=== PATIENT | male | born 1940 | race Caucasian/White ===

== ENCOUNTER → 2017-05-08 | Outpatient (CLI) | payer MEDICARE, OTHER ==
[~2017-05-08] MED LIST: ASPI81EC; ATOR10; CLOBETTC TP; DESL5; DOCU100 PO; FERR325 PO; FISH1000 PO; HYDACE10B PO; LOSHYD; MULTI VITAMIN1 EACH PO; PRED10 PO; PROSTATE HEALT1 EACH PO; ROFE12.5; TAMS.4ER; UBID10; WARF4 PO; XYZAL5 MG PO; [UNRECOGNIZED DRUG - CODE]
[2017-05-08 09:34] LABS: EOSINOPHILS ABSOLUTE AUTO 0.22 K/mm3 (0.00-0.68); EOSINOPHILS PERCENT AUTO 0 % (0-6); Hematocrit 38.9 % (37.0-53.0); Hemoglobin 12.2 g/dL (13.5-17.5); Mean Corpuscular HGB 29.5 pg (26.0-34.0); Mean Corpuscular HGB Conc 31.4 g/dL (31.5-36.5); Mean Corpuscular Volume 94 fL (80-100); Mean Platelet Volume 9.3 fL (9.1-12.4); Platelet Count 147 K/mm3 (150-400); RDW Coefficient Variation 15.4 % (11.7-14.2); RDW Standard Deviation 53.1 fL (35.1-46.3); Red Blood Cell Count 4.13 M/mm3 (4.30-5.90)
[2017-05-08 09:44] LABS: Albumin, Blood 4.3 g/dL (3.4-5.0); Albumin/Globulin Ratio 1.3 (0.8-1.8); Bilirubin, Total 0.6 mg/dL (0.1-1.0); Calcium, Blood 9.2 mg/dL (8.5-10.1); Creatinine, Blood 1.5 mg/dL (0.60-1.20); Globulin, Blood 3.3 g/dL (2.2-4.0); Total Protein, Blood 7.6 g/dL (6.4-8.2)
[2017-05-08 10:12] LABS: BASOPHILS ABSOLUTE AUTO 0.06 K/mm3 (0.00-0.23); BASOPHILS PERCENT AUTO 0 % (0-2); IMMATURE GRAN ABSOLUTE AUTO 0.16 K/mm3 (0.00-0.10); IMMATURE GRAN PERCENT AUTO 0 % (0-1); LYMPHOCYTES ABSOLUTE AUTO 80.91 K/mm3 (0.84-5.20); LYMPHOCYTES PERCENT AUTO 88 % (21-46); MONOCYTES ABSOLUTE AUTO 5.87 K/mm3 (0.16-1.47); MONOCYTES PERCENT AUTO 6 % (4-13); NEUTROPHILS ABSOLUTE AUTO 4.29 K/mm3 (1.96-9.15); NEUTROPHILS PERCENT AUTO 5 % (41-73); White Blood Cell Count 91.51 K/mm3 (4.00-11.30)
== END ==
LOC: LAB SHORT 09:28 → LAB EV 09:28
PROVIDERS: General Practice
DX: C91.90 Lymphoid leukemia, unspecified not having achieved remission (principal); R05 Cough
CPT/HCPCS: 80053; 85025; 87070

== ENCOUNTER → 2017-05-14 | Outpatient (CLI) | payer MEDICARE, OTHER ==
[2017-05-14 09:13] LABS: EOSINOPHILS ABSOLUTE AUTO 0.24 K/mm3 (0.00-0.68); EOSINOPHILS PERCENT AUTO 0 % (0-6); Hematocrit 37.3 % (37.0-53.0); IMMATURE GRAN ABSOLUTE AUTO 0.15 K/mm3 (0.00-0.10); IMMATURE GRAN PERCENT AUTO 0 % (0-1); Mean Corpuscular HGB 30.2 pg (26.0-34.0); Mean Corpuscular HGB Conc 32.2 g/dL (31.5-36.5); Mean Corpuscular Volume 94 fL (80-100); Mean Platelet Volume 9.4 fL (9.1-12.4); NEUTROPHILS ABSOLUTE AUTO 3.98 K/mm3 (1.96-9.15); NEUTROPHILS PERCENT AUTO 5 % (41-73); Platelet Count 151 K/mm3 (150-400); RDW Coefficient Variation 15.2 % (11.7-14.2); RDW Standard Deviation 52.3 fL (35.1-46.3); Red Blood Cell Count 3.98 M/mm3 (4.30-5.90)
[2017-05-14 09:23] LABS: Albumin, Blood 4.1 g/dL (3.4-5.0); Albumin/Globulin Ratio 1.2 (0.8-1.8); Bilirubin, Total 0.6 mg/dL (0.1-1.0); Bun/Creatinine Ratio 19.2 (12.0-20.0); Creatinine, Blood 1.2 mg/dL (0.60-1.20); Globulin, Blood 3.3 g/dL (2.2-4.0); Total Protein, Blood 7.4 g/dL (6.4-8.2)
[2017-05-14 10:04] LABS: BASOPHILS PERCENT AUTO 0 % (0-2); LYMPHOCYTES ABSOLUTE AUTO 77.59 K/mm3 (0.84-5.20); LYMPHOCYTES PERCENT AUTO 89 % (21-46); MONOCYTES ABSOLUTE AUTO 5.07 K/mm3 (0.16-1.47); MONOCYTES PERCENT AUTO 6 % (4-13)
[2017-05-14 10:05] LABS: White Blood Cell Count 87.23 K/mm3 (4.00-11.30)
== END | disposition home or self-care (01) ==
LOC: LAB EV 09:07 → LAB SHORT 09:07
PROVIDERS: General Practice
DX: C91.90 Lymphoid leukemia, unspecified not having achieved remission (principal)
CPT/HCPCS: 80053; 85025

== ENCOUNTER → 2017-05-20 | Outpatient (CLI) | payer MEDICARE, OTHER ==
[~2017-05-20] MED LIST changes: +ASPI81CH PO; +ATOR20 PO; +CHOL10002 PO; +COQ1050 MG PO; +FISH OIL 1,0001 EAC1 PO; +KETO15TC TOP; +LOSARTAN-HCTZ1 EAC1 PO; +TAMS.4ER PO; +TURMERIC500 M2 PO; +[UNRECOGNIZED DRUG - OTHER] PO
== END | disposition home or self-care (01) ==
LOC: PLD 11:47 → LAB SHORT 11:47
DX: D48.5 Neoplasm of uncertain behavior of skin (principal)
CPT/HCPCS: 88305

== ENCOUNTER 2017-08-31 08:57 | Day surgery (SDC) | payer MEDICARE, OTHER ==
[~2017-08-31] VITALS: Ht 188 cm; Wt 116.6 kg
== END 2017-08-31 23:15 | disposition home or self-care (01) ==
LOC: ORSCMMR 08:57 → ORD 10:30 → ORSCMMR 23:15
DX: C91.10 Chronic lymphocytic leukemia of B-cell type not having achieved remission (principal); I10 Essential (primary) hypertension; G47.33 Obstructive sleep apnea (adult) (pediatric); Z79.899 Other long term (current) drug therapy; Z79.82 Long term (current) use of aspirin
CPT/HCPCS: 77001; C1788; J0690; J1100; J1642; J2250; J2405; J3010; J7120

== ENCOUNTER → 2017-09-01 | Outpatient (CLI) | payer MEDICARE, OTHER ==
[2017-09-01 11:56] LABS: EOSINOPHILS ABSOLUTE AUTO 0.09 K/mm3 (0.00-0.68); EOSINOPHILS PERCENT AUTO 0 % (0-6); Hematocrit 35.9 % (37.0-53.0); Hemoglobin 10.8 g/dL (13.5-17.5); Mean Corpuscular HGB 29.3 pg (26.0-34.0); Mean Corpuscular HGB Conc 30.1 g/dL (31.5-36.5); Mean Corpuscular Volume 97 fL (80-100); Mean Platelet Volume 9.9 fL (9.1-12.4); Platelet Count 143 K/mm3 (150-400); RDW Coefficient Variation 15.8 % (11.7-14.2); Red Blood Cell Count 3.69 M/mm3 (4.30-5.90)
[2017-09-01 11:58] LABS: BASOPHILS ABSOLUTE AUTO 0.08 K/mm3 (0.00-0.23); BASOPHILS PERCENT AUTO 0 % (0-2); IMMATURE GRAN ABSOLUTE AUTO 0.22 K/mm3 (0.00-0.10); IMMATURE GRAN PERCENT AUTO 0 % (0-1); LYMPHOCYTES ABSOLUTE AUTO 96.77 K/mm3 (0.84-5.20); LYMPHOCYTES PERCENT AUTO 86 % (21-46); MONOCYTES ABSOLUTE AUTO 10.44 K/mm3 (0.16-1.47); MONOCYTES PERCENT AUTO 9 % (4-13); NEUTROPHILS ABSOLUTE AUTO 4.92 K/mm3 (1.96-9.15); NEUTROPHILS PERCENT AUTO 4 % (41-73)
[2017-09-01 12:01] LABS: White Blood Cell Count 112.52 K/mm3 (4.00-11.30)
[2017-09-01 13:29] LABS: BASOPHILS PERCENT MAN 0 % (0-2); EOSINOPHILS ABSOLUTE MAN 1.12 K/mm3 (0.00-0.68); EOSINOPHILS PERCENT MAN 1 % (0-6); LYMPHOCYTES ABSOLUTE MAN 104.64 K/mm3 (0.84-5.20); LYMPHOCYTES PERCENT MAN 93 % (21-46); MONOCYTES ABSOLUTE MAN 1.12 K/mm3 (0.16-1.47); MONOCYTES PERCENT MAN 1 % (4-13); NEUTROPHILS ABSOLUTE MAN 5.62 K/mm3 (1.96-9.15); SEG NEUTROPHILS PERCENT MAN 5 % (41-73); TOTAL CELLS COUNTED 100
== END | disposition home or self-care (01) ==
LOC: LAB 11:32 → LAB SHORT 11:32
PROVIDERS: Internal Medicine Hematology & Oncology
DX: C91.10 Chronic lymphocytic leukemia of B-cell type not having achieved remission (principal)
CPT/HCPCS: 85025

== ENCOUNTER → 2017-09-02 | Outpatient (CLI) | payer MEDICARE, OTHER ==
[2017-09-03 10:11] LABS: Albumin, Blood 3.2 g/dL (3.4-5.0); Albumin/Globulin Ratio 1.2 (0.8-1.8); Bilirubin, Total 0.3 mg/dL (0.1-1.0); Bun/Creatinine Ratio 33.1 (12.0-20.0); Creatinine, Blood 1.33 mg/dL (0.60-1.20); Globulin, Blood 2.6 g/dL (2.2-4.0); Potassium, Blood 4.4 mmol/L (3.5-5.5); Total Protein, Blood 5.8 g/dL (6.4-8.2); Uric Acid, Blood 4.3 mg/dL (3.5-7.2)
[2017-09-03 11:00] LABS: BASOPHILS ABSOLUTE AUTO 0.03 K/mm3 (0.00-0.23); BASOPHILS PERCENT AUTO 0 % (0-2); EOSINOPHILS PERCENT AUTO 0 % (0-6); Hematocrit 30.8 % (37.0-53.0); Mean Corpuscular HGB 30.6 pg (26.0-34.0); Mean Corpuscular HGB Conc 32.5 g/dL (31.5-36.5); NRBC ABSOLUTE 0.06 K/mm3 (0.00-0.02); NRBC Auto 0.2 /100 WBC (0.0-0.2); RDW Coefficient Variation 15.7 % (11.7-14.2); RDW Standard Deviation 53.7 fL (35.1-46.3); Red Blood Cell Count 3.27 M/mm3 (4.30-5.90); White Blood Cell Count 27.23 K/mm3 (4.00-11.30)
[2017-09-03 11:02] LABS: IMMATURE GRAN ABSOLUTE AUTO 0.11 K/mm3 (0.00-0.10); IMMATURE GRAN PERCENT AUTO 0 % (0-1); LYMPHOCYTES ABSOLUTE AUTO 18.74 K/mm3 (0.84-5.20); LYMPHOCYTES PERCENT AUTO 69 % (21-46); MONOCYTES ABSOLUTE AUTO 2.77 K/mm3 (0.16-1.47); MONOCYTES PERCENT AUTO 10 % (4-13); Mean Corpuscular Volume 94 fL (80-100); Mean Platelet Volume 10.9 fL (9.1-12.4); NEUTROPHILS ABSOLUTE AUTO 5.58 K/mm3 (1.96-9.15); NEUTROPHILS PERCENT AUTO 21 % (41-73); Platelet Count 76 K/mm3 (150-400)
[2017-09-03 11:10] LABS: BAND PERCENT MAN 1 % (0-8); BASOPHILS PERCENT MAN 0 % (0-2); EOSINOPHILS PERCENT MAN 0 % (0-6); LYMPHOCYTES PERCENT MAN 83 % (21-46); METAMYELOCYTE ABSOLUTE MAN 0.27 K/mm3 (0.00-0.00); METAMYELOCYTE PERCENT MAN 1 % (0-0); MONOCYTES PERCENT MAN 0 % (4-13); NEUTROPHILS ABSOLUTE MAN 4.35 K/mm3 (1.96-9.15); SEG NEUTROPHILS PERCENT MAN 15 % (41-73); TOTAL CELLS COUNTED 100
== END ==
LOC: LAB SHORT 15:10
PROVIDERS: Internal Medicine Hematology & Oncology
DX: C91.10 Chronic lymphocytic leukemia of B-cell type not having achieved remission (principal)
CPT/HCPCS: 80053; 84550; 85025

== ENCOUNTER → 2017-09-04 | Outpatient (CLI) | payer MEDICARE, OTHER ==
[2017-09-04 14:17] LABS: Alanine Aminotransfer (ALT/SGP 27 U/L (12-78); Albumin, Blood 3.6 g/dL (3.4-5.0); Albumin/Globulin Ratio 1.4 (0.8-1.8); Alk Phos 87 U/L (50-136); Anion Gap 9 mmol/L (6-16); Aspartate Aminotrans (AST/SGOT 30 U/L (12-37); Bilirubin, Total 0.5 mg/dL (0.1-1.0); Blood Urea Nitrogen 35 mg/dL (8-24); Bun/Creatinine Ratio 28.9 (12.0-20.0); CO2, Blood 27 mmol/L (21-32); Calcium, Blood 8.3 mg/dL (8.5-10.1); Chloride, Blood 107 mmol/L (98-108); Creatinine, Blood 1.21 mg/dL (0.60-1.20); Globulin, Blood 2.6 g/dL (2.2-4.0); Glomerular Filtration Rate >60 (60-); Glucose, Blood 138 mg/dL (70-99); Potassium, Blood 4.1 mmol/L (3.5-5.5); Sodium, Blood 143 mmol/L (136-145); Total Protein, Blood 6.2 g/dL (6.4-8.2); Uric Acid, Blood 3.9 mg/dL (3.5-7.2)
== END ==
LOC: LAB SHORT 13:55 → LAB 13:55
PROVIDERS: Internal Medicine Hematology & Oncology
DX: C91.10 Chronic lymphocytic leukemia of B-cell type not having achieved remission (principal)
CPT/HCPCS: 80053; 84550

== ENCOUNTER → 2017-09-08 | Outpatient (CLI) | payer MEDICARE, OTHER ==
[2017-09-08 10:56] LABS: Alanine Aminotransfer (ALT/SGP 28 U/L (12-78); Albumin, Blood 3.6 g/dL (3.4-5.0); Albumin/Globulin Ratio 1.3 (0.8-1.8); Alk Phos 84 U/L (50-136); Anion Gap 8 mmol/L (6-16); Aspartate Aminotrans (AST/SGOT 32 U/L (12-37); Bilirubin, Total 0.8 mg/dL (0.1-1.0); Blood Urea Nitrogen 23 mg/dL (8-24); Bun/Creatinine Ratio 21.5 (12.0-20.0); CO2, Blood 30 mmol/L (21-32); Calcium, Blood 8.2 mg/dL (8.5-10.1); Chloride, Blood 101 mmol/L (98-108); Creatinine, Blood 1.07 mg/dL (0.60-1.20); Globulin, Blood 2.7 g/dL (2.2-4.0); Glomerular Filtration Rate >60 (60-); Glucose, Blood 110 mg/dL (70-99); Potassium, Blood 4.1 mmol/L (3.5-5.5); Sodium, Blood 139 mmol/L (136-145); Total Protein, Blood 6.3 g/dL (6.4-8.2)
== END | disposition home or self-care (01) ==
LOC: LAB 10:25 → LAB SHORT 10:25
PROVIDERS: Internal Medicine Hematology & Oncology
DX: C91.10 Chronic lymphocytic leukemia of B-cell type not having achieved remission (principal)
CPT/HCPCS: 80053

== ENCOUNTER → 2017-09-22 | Outpatient (CLI) | payer MEDICARE, OTHER ==
[2017-09-22 16:59] LABS: Albumin, Blood 4.1 g/dL (3.4-5.0); Albumin/Globulin Ratio 1.5 (0.8-1.8); Bilirubin, Total 1.1 mg/dL (0.1-1.0); Bun/Creatinine Ratio 20.8 (12.0-20.0); Calcium, Blood 8.7 mg/dL (8.5-10.1); Creatinine, Blood 1.3 mg/dL (0.60-1.20); Globulin, Blood 2.7 g/dL (2.2-4.0); Total Protein, Blood 6.8 g/dL (6.4-8.2)
== END ==
LOC: LAB SHORT 08:45 → LAB 08:45
PROVIDERS: Internal Medicine Hematology & Oncology
DX: C91.10 Chronic lymphocytic leukemia of B-cell type not having achieved remission (principal)
CPT/HCPCS: 80053

== ENCOUNTER → 2017-09-29 | Outpatient (CLI) | payer MEDICARE, OTHER ==
[2017-09-29 13:43] LABS: Alanine Aminotransfer (ALT/SGP 31 U/L (12-78); Albumin, Blood 3.9 g/dL (3.4-5.0); Albumin/Globulin Ratio 1.4 (0.8-1.8); Alk Phos 110 U/L (50-136); Anion Gap 8 mmol/L (6-16); Aspartate Aminotrans (AST/SGOT 39 U/L (12-37); Bilirubin, Total 0.4 mg/dL (0.1-1.0); Blood Urea Nitrogen 28 mg/dL (8-24); Bun/Creatinine Ratio 26.7 (12.0-20.0); CO2, Blood 27 mmol/L (21-32); Calcium, Blood 8.5 mg/dL (8.5-10.1); Chloride, Blood 103 mmol/L (98-108); Creatinine, Blood 1.05 mg/dL (0.60-1.20); Globulin, Blood 2.8 g/dL (2.2-4.0); Glomerular Filtration Rate >60 (60-); Glucose, Blood 142 mg/dL (70-99); Sodium, Blood 138 mmol/L (136-145); Total Protein, Blood 6.7 g/dL (6.4-8.2)
== END | disposition home or self-care (01) ==
LOC: LAB 12:25 → LAB SHORT 12:25
PROVIDERS: Internal Medicine Hematology & Oncology
DX: C91.10 Chronic lymphocytic leukemia of B-cell type not having achieved remission (principal)
CPT/HCPCS: 80053

== ENCOUNTER → 2017-10-20 | Outpatient (CLI) | payer MEDICARE, OTHER ==
[2017-10-20 10:48] LABS: Alanine Aminotransfer (ALT/SGP 31 U/L (12-78); Albumin/Globulin Ratio 1.4 (0.8-1.8); Alk Phos 105 U/L (50-136); Anion Gap 6 mmol/L (6-16); Aspartate Aminotrans (AST/SGOT 45 U/L (12-37); Bilirubin, Total 0.4 mg/dL (0.1-1.0); Blood Urea Nitrogen 23 mg/dL (8-24); Bun/Creatinine Ratio 22.5 (12.0-20.0); CO2, Blood 31 mmol/L (21-32); Calcium, Blood 8.5 mg/dL (8.5-10.1); Chloride, Blood 105 mmol/L (98-108); Creatinine, Blood 1.02 mg/dL (0.60-1.20); Globulin, Blood 2.9 g/dL (2.2-4.0); Glomerular Filtration Rate >60 (60-); Glucose, Blood 109 mg/dL (70-99); Sodium, Blood 142 mmol/L (136-145); Total Protein, Blood 6.9 g/dL (6.4-8.2)
== END ==
LOC: LAB SHORT 10:19 → LAB 10:19
PROVIDERS: Internal Medicine Hematology & Oncology
DX: C91.10 Chronic lymphocytic leukemia of B-cell type not having achieved remission (principal)
CPT/HCPCS: 80053

== ENCOUNTER → 2017-11-24 | Outpatient (CLI) | payer MEDICARE, OTHER ==
[2017-11-24 10:57] LABS: Alanine Aminotransfer (ALT/SGP 37 U/L (12-78); Albumin/Globulin Ratio 1.4 (0.8-1.8); Alk Phos 77 U/L (50-136); Anion Gap 7 mmol/L (6-16); Aspartate Aminotrans (AST/SGOT 54 U/L (12-37); Bilirubin, Total 0.6 mg/dL (0.1-1.0); Blood Urea Nitrogen 25 mg/dL (8-24); Bun/Creatinine Ratio 27.3 (12.0-20.0); CO2, Blood 30 mmol/L (21-32); Calcium, Blood 8.6 mg/dL (8.5-10.1); Chloride, Blood 106 mmol/L (98-108); Creatinine, Blood 0.92 mg/dL (0.60-1.20); Globulin, Blood 2.8 g/dL (2.2-4.0); Glomerular Filtration Rate >60 (60-); Glucose, Blood 96 mg/dL (70-99); Potassium, Blood 3.9 mmol/L (3.5-5.5); Sodium, Blood 143 mmol/L (136-145); Total Protein, Blood 6.8 g/dL (6.4-8.2)
== END ==
LOC: LAB SHORT 10:23 → LAB 10:23
PROVIDERS: Internal Medicine Hematology & Oncology
DX: C91.10 Chronic lymphocytic leukemia of B-cell type not having achieved remission (principal)
CPT/HCPCS: 80053

== ENCOUNTER → 2017-11-25 | Outpatient (CLI) | payer MEDICARE, OTHER | LOC: PLD 10:44 → LAB SHORT 10:44 | DX: D48.5 Neoplasm of uncertain behavior of skin (principal) | CPT/HCPCS: 88305 ==

== ENCOUNTER → 2017-12-02 | Outpatient (CLI) | payer MEDICARE, OTHER | END | disposition home or self-care (01) | LOC: LAB 08:00 → LAB SHORT 08:00 | DX: L08.0 Pyoderma (principal) | CPT/HCPCS: 87070; 87077; 87147; 87186; 87205 ==

== ENCOUNTER → 2017-12-15 | Outpatient (CLI) | payer MEDICARE, OTHER | END | disposition home or self-care (01) | LOC: LAB SHORT 14:47 → PLD 14:47 | DX: C44.310 Basal cell carcinoma of skin of unspecified parts of face (principal) | CPT/HCPCS: 88305 ==

== ENCOUNTER → 2018-01-11 | Outpatient (CLI) | payer MEDICARE, OTHER | END | disposition home or self-care (01) | LOC: PLD 07:51 → LAB SHORT 07:51 | DX: C44.319 Basal cell carcinoma of skin of other parts of face (principal) | CPT/HCPCS: 88305 ==

== ENCOUNTER → 2018-03-04 | Outpatient (CLI) | payer MEDICARE, OTHER | END | disposition home or self-care (01) | LOC: PLD 14:13 → LAB SHORT 14:13 | DX: L57.0 Actinic keratosis (principal) | CPT/HCPCS: 88305 ==

== ENCOUNTER → 2018-03-18 | Outpatient (CLI) | payer MEDICARE, OTHER | END | disposition home or self-care (01) | LOC: PLD 11:22 → LAB SHORT 11:22 | DX: C44.319 Basal cell carcinoma of skin of other parts of face (principal); C44.212 Basal cell carcinoma of skin of right ear and external auricular canal | CPT/HCPCS: 88305 ==

== ENCOUNTER → 2018-05-06 | Outpatient (CLI) | payer MEDICARE, OTHER | END | disposition home or self-care (01) | LOC: LAB SHORT 13:51 → PLD 13:51 | DX: C44.219 Basal cell carcinoma of skin of left ear and external auricular canal (principal); L57.0 Actinic keratosis | CPT/HCPCS: 88305 ==

== ENCOUNTER → 2018-05-26 | Outpatient (CLI) | payer MEDICARE, OTHER | END | disposition home or self-care (01) | LOC: PLD 07:47 → LAB SHORT 07:47 | DX: C44.41 Basal cell carcinoma of skin of scalp and neck (principal) | CPT/HCPCS: 88305 ==

== ENCOUNTER → 2018-07-05 | Outpatient (CLI) | payer MEDICARE, OTHER | END | disposition home or self-care (01) | LOC: LAB SHORT 13:54 → PLD 13:54 | DX: C44.41 Basal cell carcinoma of skin of scalp and neck (principal) | CPT/HCPCS: 88305 ==

== ENCOUNTER → 2018-07-19 | Outpatient (CLI) | payer MEDICARE, OTHER ==
[2018-07-19 17:14] LABS: Alanine Aminotransfer (ALT/SGP 47 U/L (12-78); Albumin, Blood 4.4 g/dL (3.4-5.0); Albumin/Globulin Ratio 1.6 (0.8-1.8); Alk Phos 93 U/L (50-136); Anion Gap 8 mmol/L (6-16); Aspartate Aminotrans (AST/SGOT 64 U/L (12-37); Bilirubin, Total 0.6 mg/dL (0.1-1.0); Blood Urea Nitrogen 22 mg/dL (8-24); Bun/Creatinine Ratio 21.8 (12.0-20.0); CO2, Blood 30 mmol/L (21-32); Calcium, Blood 9.1 mg/dL (8.5-10.1); Chloride, Blood 102 mmol/L (98-108); Creatinine, Blood 1.01 mg/dL (0.60-1.20); Globulin, Blood 2.7 g/dL (2.2-4.0); Glomerular Filtration Rate >60 (60-); Glucose, Blood 113 mg/dL (70-99); Potassium, Blood 3.9 mmol/L (3.5-5.5); Sodium, Blood 140 mmol/L (136-145); Total Protein, Blood 7.1 g/dL (6.4-8.2)
[2018-07-19 17:23] LABS: Lactate Dehydrogenase (Ld),Bld 200 U/L (100-240)
== END | disposition home or self-care (01) ==
LOC: LAB 16:39 → LAB SHORT 16:39
PROVIDERS: Internal Medicine Hematology & Oncology
DX: C91.10 Chronic lymphocytic leukemia of B-cell type not having achieved remission (principal)
CPT/HCPCS: 80053; 83615

== ENCOUNTER → 2018-12-29 | Outpatient (CLI) | payer MEDICARE, OTHER | END | disposition home or self-care (01) | LOC: PLD 12:11 → LAB SHORT 12:11 | DX: C44.219 Basal cell carcinoma of skin of left ear and external auricular canal (principal); C44.319 Basal cell carcinoma of skin of other parts of face; H60.92 Unspecified otitis externa, left ear | CPT/HCPCS: 88305 ==

== ENCOUNTER → 2019-01-31 | Outpatient (CLI) | payer MEDICARE, OTHER | LOC: LAB SHORT 07:56 → PLD 07:56 | DX: C44.310 Basal cell carcinoma of skin of unspecified parts of face (principal) | CPT/HCPCS: 88305 ==

== ENCOUNTER → 2019-04-06 | Outpatient (CLI) | payer MEDICARE, OTHER | END | disposition home or self-care (01) | LOC: PLD 13:23 → LAB SHORT 13:23 | DX: D48.5 Neoplasm of uncertain behavior of skin (principal) | CPT/HCPCS: 88305 ==

== ENCOUNTER → 2019-08-09 | Outpatient (CLI) | payer MEDICARE, OTHER | END | disposition home or self-care (01) | LOC: LAB SHORT 12:49 → PLD 12:49 | DX: C44.311 Basal cell carcinoma of skin of nose (principal) | CPT/HCPCS: 88305 ==

== ENCOUNTER → 2020-01-17 | Outpatient (CLI) | payer MEDICARE, OTHER ==
[~2020-01-17] MED LIST changes: +ACET325 PO; +ALBU90OI INH; +ALLO300 PO; +BENZ100A PO; +BISA10S PR; +DECADRON6 MG PO; +DEXA2 PO; +DOXY100 PO; -LOSARTAN-HCTZ1 EAC1 PO; +LOSARTAN-HCTZ1 EAC5 PO; +ONDA4ODT SL; +Q-Tussin100 MG/5 M PO; +VISBIOME PROBIOTIC PO
== END ==
LOC: PLD 15:25 → LAB SHORT 15:25
DX: C44.219 Basal cell carcinoma of skin of left ear and external auricular canal (principal); C44.41 Basal cell carcinoma of skin of scalp and neck; C44.319 Basal cell carcinoma of skin of other parts of face; C44.212 Basal cell carcinoma of skin of right ear and external auricular canal
CPT/HCPCS: 88305

== ENCOUNTER 2020-01-31 10:09 | Emergency (ER) | payer MEDICARE, OTHER ==
[~2020-01-31] VITALS: Ht 190.5 cm; Wt 117.9 kg
[~2020-01-31 10:09] MED LIST changes: -ACET325 PO; -ALBU90OI INH; -ALLO300 PO; -ATOR20 PO; -BENZ100A PO; -BISA10S PR; -DECADRON6 MG PO; -DOXY100 PO; -LOSARTAN-HCTZ1 EAC5 PO; -ONDA4ODT SL; -Q-Tussin100 MG/5 M PO; -TAMS.4ER PO; -VISBIOME PROBIOTIC PO
[2020-01-31 11:23] LABS: Hematocrit 40.8 % (37.0-53.0); Hemoglobin 13.2 g/dL (13.5-17.5); Mean Corpuscular HGB 29.7 pg (26.0-34.0); Mean Corpuscular HGB Conc 32.4 g/dL (31.5-36.5); Mean Corpuscular Volume 92 fL (80-100); Platelet Count 167 K/mm3 (150-400); Red Blood Cell Count 4.44 M/mm3 (4.30-5.90); White Blood Cell Count 12.08 K/mm3 (4.00-11.30)
[2020-01-31 11:42] LABS: Alanine Aminotransfer (ALT/SGP 29 U/L (12-78); Albumin, Blood 3.4 g/dL (3.4-5.0); Albumin/Globulin Ratio 1.2 (0.8-1.8); Alk Phos 60 U/L (50-136); Anion Gap 6 mmol/L (6-16); Aspartate Aminotrans (AST/SGOT 58 U/L (12-37); Bilirubin, Total 0.4 mg/dL (0.1-1.0); Blood Urea Nitrogen 38 mg/dL (8-24); Bun/Creatinine Ratio 25.9 (12.0-20.0); CO2, Blood 30 mmol/L (21-32); Calcium, Blood 8.3 mg/dL (8.5-10.1); Chloride, Blood 100 mmol/L (98-108); Creatinine, Blood 1.47 mg/dL (0.60-1.20); Globulin, Blood 2.8 g/dL (2.2-4.0); Glomerular Filtration Rate 49 (60-); Glucose, Blood 115 mg/dL (70-99); Potassium, Blood 3.6 mmol/L (3.5-5.5); Sodium, Blood 136 mmol/L (136-145); Total Protein, Blood 6.2 g/dL (6.4-8.2); Troponin I <0.015 ng/mL (0.000-0.040)
[2020-01-31 11:51] LABS: BASOPHILS PERCENT MAN 0 % (0-2); EOSINOPHILS PERCENT MAN 0 % (0-6); LYMPHOCYTES % ATYPICAL MANUAL 9 % (0-0); LYMPHOCYTES ABSOLUTE MAN 5.07 K/mm3 (0.84-5.20); LYMPHOCYTES PERCENT MAN 33 % (21-46); MONOCYTES ABSOLUTE MAN 0.48 K/mm3 (0.16-1.47); MONOCYTES PERCENT MAN 4 % (4-13); NEUTROPHILS ABSOLUTE MAN 6.52 K/mm3 (1.96-9.15); SEG NEUTROPHILS PERCENT MAN 54 % (41-73); TOTAL CELLS COUNTED 100
[2020-01-31] MEDS ORDERED: DECADRON6 MG PO (12:14)
== END 2020-01-31 14:03 | disposition home or self-care (01) ==
LOC: ER 10:09
PROVIDERS: Emergency Medicine
DX: U07.1 COVID-19 (principal); R11.2 Nausea with vomiting, unspecified; R09.02 Hypoxemia; Z79.899 Other long term (current) drug therapy; Z79.82 Long term (current) use of aspirin
CPT/HCPCS: 36415; 80053; 83880; 84484; 85025; 93005; 93010; 96360; 99285-25; J7030

== ENCOUNTER 2020-02-02 06:04 | Inpatient (IN) | payer MEDICARE, OTHER ==
[~2020-02-02] VITALS: Ht 190.5 cm; Wt 120.2 kg
[~2020-02-02 06:04] MED LIST changes: +DECADRON6 MG PO
[2020-02-02 06:40] LABS: Hematocrit 41.5 % (37.0-53.0); Hemoglobin 13.3 g/dL (13.5-17.5); Mean Corpuscular HGB 29.7 pg (26.0-34.0); Mean Corpuscular Volume 93 fL (80-100); Platelet Count 145 K/mm3 (150-400); RDW Coefficient Variation 13.2 % (11.7-14.2); RDW Standard Deviation 45.6 fL (35.1-46.3); Red Blood Cell Count 4.48 M/mm3 (4.30-5.90); White Blood Cell Count 10.28 K/mm3 (4.00-11.30)
[2020-02-02 06:54] LABS: Albumin/Globulin Ratio 1.1 (0.8-1.8); Bilirubin, Total 0.6 mg/dL (0.1-1.0); Bun/Creatinine Ratio 22.1 (12.0-20.0); Calcium, Blood 7.8 mg/dL (8.5-10.1); Creatinine, Blood 1.4 mg/dL (0.60-1.20); Globulin, Blood 2.7 g/dL (2.2-4.0); Potassium, Blood 3.6 mmol/L (3.5-5.5); Total Protein, Blood 5.7 g/dL (6.4-8.2)
[2020-02-02 07:06] LABS: BASOPHILS PERCENT MAN 0 % (0-2); EOSINOPHILS PERCENT MAN 0 % (0-6); LYMPHOCYTES % ATYPICAL MANUAL 9 % (0-0); LYMPHOCYTES ABSOLUTE MAN 4.31 K/mm3 (0.84-5.20); LYMPHOCYTES PERCENT MAN 33 % (21-46); MONOCYTES ABSOLUTE MAN 0.82 K/mm3 (0.16-1.47); MONOCYTES PERCENT MAN 8 % (4-13); NEUTROPHILS ABSOLUTE MAN 5.14 K/mm3 (1.96-9.15); SEG NEUTROPHILS PERCENT MAN 50 % (41-73); TOTAL CELLS COUNTED 100
--- NOTE | 2020-02-02 13:00 | NUR ---
PT ARRIVED TO TO ROOM 307-01 VIA BED FROM THE ER. HE WAS ABLE TO STAND AND TRANSFER TO BED WITH ASSISTANCE, SOMEWHAT WEAK GAIT R/T CURRENT ILLNESS. DENIES PAIN AND N/V AT THIS TIME. ORIENTED TO ROOM, CALL MACHADO IN REACH AND BED IN LOWEST POSITION. WILL CONTINUE TO MONITOR
[2020-02-02] MEDS ORDERED: ONDA4ODT SL (15:37)
[2020-02-02] MEDS ORDERED: ATOR20 PO (15:38)
[2020-02-02] MEDS ORDERED: TAMS.4ER PO (15:39)
[2020-02-02] MEDS ORDERED: ALLO300 PO (15:40)
[2020-02-02] MEDS ORDERED: LOSARTAN-HCTZ1 EAC5 PO (15:41)
--- NOTE | 2020-02-02 18:00 | NUR ---
PHONE NOT WORKING, MOVED PT FROM 307 BED 1 TO 307 BED 2. PT THEN ABLE MAKE AN OUTSIDE CALL TO HIS SPOUSE. CALL SYSTEM NOT CALLING RN/AS400 ANALYST VOCABRAN, DOES CALL CHARGE VOCERA AND DESK. BALES LIGHT COMES ON. WILL CONTINUE TO MONTR
--- NOTE | 2020-02-02 18:55 | NUR ---
NO ACUTE CHANGES NOTED SINCE ARRIVAL TO ROOM. WILL CONTINUE TO MONITOR AND REPORT TO ONCOMING RN
--- NOTE | 2020-02-03 05:28 | NUR ---
LEAD INSPECTOR SUMMARY ALERT AND ORIENTED. APPEARED TO SLEEP T/O NIGHT. DENIES PAIN, N/V AT THIS TIME. CURRENTLY ON 2L O2 VIA NC, CONT. BIOX IN PLACE WITH SATS GREATER THAN 93. NO ACUTE CHANGES NOTED. BED IN LOWEST POSITION WITH CALL LIGHT IN REACH. WILL CONTINUE TO MONITOR AND REPORT TO ONCOMING RN.
[2020-02-03 05:36] LABS: Hemoglobin 14.2 g/dL (13.5-17.5); Mean Corpuscular HGB 30.2 pg (26.0-34.0); Mean Corpuscular Volume 92 fL (80-100); Mean Platelet Volume 9.9 fL (9.1-12.4); Platelet Count 153 K/mm3 (150-400); RDW Coefficient Variation 13.3 % (11.7-14.2); RDW Standard Deviation 45.1 fL (35.1-46.3); White Blood Cell Count 12.13 K/mm3 (4.00-11.30)
[2020-02-03 06:06] LABS: Alanine Aminotransfer (ALT/SGP 46 U/L (12-78); Albumin, Blood 2.9 g/dL (3.4-5.0); Albumin/Globulin Ratio 0.9 (0.8-1.8); Alk Phos 47 U/L (50-136); Anion Gap 7 mmol/L (6-16); Aspartate Aminotrans (AST/SGOT 89 U/L (12-37); Bilirubin, Total 0.8 mg/dL (0.1-1.0); Blood Urea Nitrogen 25 mg/dL (8-24); Bun/Creatinine Ratio 21.9 (12.0-20.0); CO2, Blood 28 mmol/L (21-32); Calcium, Blood 7.9 mg/dL (8.5-10.1); Chloride, Blood 102 mmol/L (98-108); Creatinine, Blood 1.14 mg/dL (0.60-1.20); Globulin, Blood 3.1 g/dL (2.2-4.0); Glomerular Filtration Rate >60 (60-); Glucose, Blood 102 mg/dL (70-99); Magnesium, Blood 2.5 mg/dL (1.6-2.4); Phosphorus, Blood 2.5 mg/dL (2.5-4.9); Potassium, Blood 3.9 mmol/L (3.5-5.5); Sodium, Blood 137 mmol/L (136-145)
--- NOTE | 2020-02-03 18:07 | NUR ---
a+o, denies n/v, still weak from dehydration/nausea, called on phone, took all medications and treatments as prescribed, moved well in bed, sat up to use urinal, call light in reach, resting quietly states he is feeling better but not yet ready to go home, will continue to monitor and treat until share report with noc nurse and pt
--- NOTE | 2020-02-04 05:01 | NUR ---
SHIFT SUMMARY NO ACUTE CHANGES THIS SHIFT. PT STATES HE IS FEELING BETTER THEN HE HAS BEEN SINCE ADMIT. SLEPT WELL T/O SHIFT WITH NO COMPLAINTS OF ANY KIND. PT IS LAYING IN BED WITH EYES CLOSED, EVEN AND UNLABORED RESPIRATIONS, PT IS ON 3L O2SAT 94-95%. BED IN LOWERED POSITION, WITH BED ALARM ON. CALL LIGHT AND PERSONAL ITEMS WITH IN REACH. NO APPARENT NEEDS OR DISTRESS AT THIS TIME, WILL CONTINUE TO MONITOR UNTIL REPORT GIVEN TO DAY RN.
[2020-02-04 05:31] LABS: BASOPHILS ABSOLUTE AUTO 0.01 K/mm3 (0.00-0.23); BASOPHILS PERCENT AUTO 0 % (0-2); EOSINOPHILS PERCENT AUTO 0 % (0-6); Hematocrit 41.6 % (37.0-53.0); Hemoglobin 13.6 g/dL (13.5-17.5); Mean Corpuscular HGB 29.8 pg (26.0-34.0); Mean Corpuscular HGB Conc 32.7 g/dL (31.5-36.5); Mean Corpuscular Volume 91 fL (80-100); Platelet Count 172 K/mm3 (150-400); RDW Coefficient Variation 13.2 % (11.7-14.2); RDW Standard Deviation 44.7 fL (35.1-46.3); Red Blood Cell Count 4.57 M/mm3 (4.30-5.90); White Blood Cell Count 11.63 K/mm3 (4.00-11.30)
[2020-02-04 05:36] LABS: IMMATURE GRAN ABSOLUTE AUTO 0.04 K/mm3 (0.00-0.10); IMMATURE GRAN PERCENT AUTO 0 % (0-1); LYMPHOCYTES ABSOLUTE AUTO 6.05 K/mm3 (0.84-5.20); LYMPHOCYTES PERCENT AUTO 52 % (21-46); MONOCYTES ABSOLUTE AUTO 0.67 K/mm3 (0.16-1.47); MONOCYTES PERCENT AUTO 6 % (4-13); NEUTROPHILS ABSOLUTE AUTO 4.86 K/mm3 (1.96-9.15); NEUTROPHILS PERCENT AUTO 42 % (41-73)
[2020-02-04 05:54] LABS: Alanine Aminotransfer (ALT/SGP 104 U/L (12-78); Albumin, Blood 2.8 g/dL (3.4-5.0); Alk Phos 47 U/L (50-136); Anion Gap 6 mmol/L (6-16); Aspartate Aminotrans (AST/SGOT 122 U/L (12-37); Bilirubin, Total 0.6 mg/dL (0.1-1.0); Blood Urea Nitrogen 26 mg/dL (8-24); CO2, Blood 28 mmol/L (21-32); Calcium, Blood 8.1 mg/dL (8.5-10.1); Chloride, Blood 103 mmol/L (98-108); Creatinine, Blood 0.93 mg/dL (0.60-1.20); Globulin, Blood 2.9 g/dL (2.2-4.0); Glomerular Filtration Rate >60 (60-); Glucose, Blood 116 mg/dL (70-99); Magnesium, Blood 2.4 mg/dL (1.6-2.4); Phosphorus, Blood 2.8 mg/dL (2.5-4.9); Potassium, Blood 4.1 mmol/L (3.5-5.5); Sodium, Blood 137 mmol/L (136-145); Total Protein, Blood 5.7 g/dL (6.4-8.2)
--- NOTE | 2020-02-04 17:59 | NUR ---
SHIFT SUMMARY PT ALERT AND ORIENTED. UP TO SIDE OF BED TO USE URINAL. DENIES SOB OR RESP DISTRESS. O2 AT 3L/M BY NC. STATES HE IS FEELING BETTER. DENIES HAVING DIARRHEA. DRY ANNOYING COUGH THAT COUGH MEDICINE HELPS. WILL MONITER AND REPORT CONDITION TO ONCOMING SHIFT.
--- NOTE | 2020-02-04 22:27 | NUR ---
2000 PT RESTING COMFORTABLY IN BED; O2 SAT ON 3L/M PER NASAL CANNULA 94%; VOICE CLEAR AND AUDIBLE; DENIES PAIN OR NAUSEA.
--- NOTE | 2020-02-05 00:43 | NUR ---
PTS HEART RATE 40 PER CONTINUOUS OXIMETER; PT HAD VITALS DONE WITH HEART RATE 52; THIS NURSE ADVISED GIOVANNA RYAN, RN, CHARGE NURSE OF THE ABOVE; MD TO BE NOTIFIED TO REQUEST TELEMETRY; PT IN NO DISTRESS; ALERT AND ORIENTED X 4; DENIES PAIN OR NAUSEA.
--- NOTE | 2020-02-05 03:48 | NUR ---
SHIFT SUMMARY: 79 Y/O OBESE MALE RESTED COMFORTABLY ALL SHIFT; PT HAD EPISODE HEART RATE AT 44 PER BEDSIDE PULSE OXIMETER; PT WAS PLACED ON TELEMETRY WITH SINUS BRADYCARDIA AND BBB PER JEY--SECTION LEADER SCREEN PRINTING; DENIES PAIN OR NAUSEA; PT HAS OCCASIONAL WEAK NON PRODUCTIVE COUGH; PTS O2 SATS ARE 92% ON 5L/M PER NASAL CANNULA; BED ALARM APPLIED, BED LOW POSITION WITH CALL LIGHT AT SIDE.
[2020-02-05 05:56] LABS: Alanine Aminotransfer (ALT/SGP 119 U/L (12-78); Albumin, Blood 2.8 g/dL (3.4-5.0); Alk Phos 50 U/L (50-136); Anion Gap 5 mmol/L (6-16); Aspartate Aminotrans (AST/SGOT 109 U/L (12-37); Bilirubin, Total 0.6 mg/dL (0.1-1.0); Blood Urea Nitrogen 23 mg/dL (8-24); Bun/Creatinine Ratio 28.9 (12.0-20.0); CO2, Blood 29 mmol/L (21-32); Chloride, Blood 104 mmol/L (98-108); Globulin, Blood 2.9 g/dL (2.2-4.0); Glomerular Filtration Rate >60 (60-); Glucose, Blood 118 mg/dL (70-99); Potassium, Blood 4.4 mmol/L (3.5-5.5); Sodium, Blood 138 mmol/L (136-145); Total Protein, Blood 5.7 g/dL (6.4-8.2)
[2020-02-05 08:38] LABS: Hematocrit 42.3 % (37.0-53.0); Hemoglobin 13.8 g/dL (13.5-17.5); Mean Corpuscular HGB 29.7 pg (26.0-34.0); Mean Corpuscular HGB Conc 32.6 g/dL (31.5-36.5); Mean Corpuscular Volume 91 fL (80-100); Mean Platelet Volume 10.4 fL (9.1-12.4); Platelet Count 202 K/mm3 (150-400); RDW Coefficient Variation 13.3 % (11.7-14.2); RDW Standard Deviation 44.4 fL (35.1-46.3); Red Blood Cell Count 4.64 M/mm3 (4.30-5.90)
[2020-02-05 09:35] LABS: BASOPHILS PERCENT MAN 0 % (0-2); EOSINOPHILS PERCENT MAN 0 % (0-6); LYMPHOCYTES % ATYPICAL MANUAL 1 % (0-0); LYMPHOCYTES ABSOLUTE MAN 6.83 K/mm3 (0.84-5.20); MONOCYTES ABSOLUTE MAN 0.97 K/mm3 (0.16-1.47); MONOCYTES PERCENT MAN 8 % (4-13); NEUTROPHILS ABSOLUTE MAN 4.39 K/mm3 (1.96-9.15); SEG NEUTROPHILS PERCENT MAN 36 % (41-73); TOTAL CELLS COUNTED 100
[2020-02-05 09:40] LABS: LYMPHOCYTES PERCENT MAN 55 % (21-46)
--- NOTE | 2020-02-05 18:46 | NUR ---
SHIFT SUMMARY PT INDEPENDENT TO BSC AND USING URINAL. HAS DENIED RESP DISTRESS BUT HAS RECEIVED ROBITUSSIN TWICE FOR COUGH. O2 HAS BEEN ABLE TO BE DECREASED TO 1L/M BY VT WITH CONTINUOUS OXIMETRY IN PLACE. HOPES TO DISCHARGE IN NEXT DAY OR TWO.
--- NOTE | 2020-02-05 21:44 | NUR ---
AWAKE, UP DOING ADL'S. CONT PULSE OX IN USE - 90'S. ALERT AND ORIENTED. TOLERATED MEDS WELL. DENIED PAIN AND DECREASED SENSATION. CALL LIGHT IN REACH. ISOLATION PRECAUTIONS MAINTAINED
--- NOTE | 2020-02-06 05:26 | NUR ---
SHIFT SUMMARY HAS BEEN RESTING QUIETLY WITH FEW INTERRUPTIONS SINCE HS. AWAKE AT THIS TIME WITH C/O COUGH. COUGH SYRUP GIVEN. O2 PER NC WITH CONT PULSE OX IN 90'S. CALL LIGHT IN REACH
[2020-02-06 05:54] LABS: Hematocrit 44.9 % (37.0-53.0); Hemoglobin 14.4 g/dL (13.5-17.5); Mean Corpuscular HGB 29.4 pg (26.0-34.0); Mean Corpuscular HGB Conc 32.1 g/dL (31.5-36.5); Mean Corpuscular Volume 92 fL (80-100); Mean Platelet Volume 9.9 fL (9.1-12.4); Platelet Count 239 K/mm3 (150-400); RDW Coefficient Variation 13.2 % (11.7-14.2); RDW Standard Deviation 45.1 fL (35.1-46.3); Red Blood Cell Count 4.89 M/mm3 (4.30-5.90); White Blood Cell Count 14.17 K/mm3 (4.00-11.30)
[2020-02-06 06:21] LABS: Alanine Aminotransfer (ALT/SGP 148 U/L (12-78); Albumin, Blood 2.9 g/dL (3.4-5.0); Albumin/Globulin Ratio 0.9 (0.8-1.8); Alk Phos 59 U/L (50-136); Anion Gap 6 mmol/L (6-16); Aspartate Aminotrans (AST/SGOT 106 U/L (12-37); Bilirubin, Total 0.6 mg/dL (0.1-1.0); Blood Urea Nitrogen 23 mg/dL (8-24); Bun/Creatinine Ratio 29.3 (12.0-20.0); CO2, Blood 27 mmol/L (21-32); Calcium, Blood 8.4 mg/dL (8.5-10.1); Chloride, Blood 106 mmol/L (98-108); Creatinine, Blood 0.79 mg/dL (0.60-1.20); Globulin, Blood 3.3 g/dL (2.2-4.0); Glomerular Filtration Rate >60 (60-); Glucose, Blood 121 mg/dL (70-99); Potassium, Blood 4.7 mmol/L (3.5-5.5); Sodium, Blood 139 mmol/L (136-145); Total Protein, Blood 6.2 g/dL (6.4-8.2)
[2020-02-06 06:50] LABS: BASOPHILS PERCENT MAN 0 % (0-2); EOSINOPHILS PERCENT MAN 0 % (0-6); LYMPHOCYTES % ATYPICAL MANUAL 2 % (0-0); LYMPHOCYTES ABSOLUTE MAN 8.78 K/mm3 (0.84-5.20); LYMPHOCYTES PERCENT MAN 60 % (21-46); MONOCYTES PERCENT MAN 5 % (4-13); NEUTROPHILS ABSOLUTE MAN 4.67 K/mm3 (1.96-9.15); SEG NEUTROPHILS PERCENT MAN 33 % (41-73); TOTAL CELLS COUNTED 100
--- NOTE | 2020-02-06 17:38 | NUR ---
PT AOX4 AND COOPERATIVE OF CARE. PT DOING WELL AND LOOKS FORWARD TO DICHARGING PER PT STATEMENT. PT IS A STANBY TO BEDSIDE COMMODE AND CALLS APPROPRIATELY. CALL LIGHT IS WITHIN REACH. WILL CONTINUE TO MONITOR.
--- NOTE | 2020-02-06 21:32 | NUR ---
DR VELÁZQUEZ call for bowel care set PT reports no BM since admission. Will begin bowel care tonight as PT says he plans on Dc tomorrow.
[2020-02-07 05:49] LABS: BASOPHILS ABSOLUTE AUTO 0.08 K/mm3 (0.00-0.23); BASOPHILS PERCENT AUTO 0 % (0-2); EOSINOPHILS ABSOLUTE AUTO 0.02 K/mm3 (0.00-0.68); EOSINOPHILS PERCENT AUTO 0 % (0-6); Hematocrit 45.5 % (37.0-53.0); Hemoglobin 14.6 g/dL (13.5-17.5); Mean Corpuscular HGB Conc 32.1 g/dL (31.5-36.5); Mean Corpuscular Volume 90 fL (80-100); Platelet Count 276 K/mm3 (150-400); RDW Coefficient Variation 13.2 % (11.7-14.2); RDW Standard Deviation 44.4 fL (35.1-46.3); Red Blood Cell Count 5.04 M/mm3 (4.30-5.90); White Blood Cell Count 21.49 K/mm3 (4.00-11.30)
--- NOTE | 2020-02-07 05:49 | NUR ---
PT had uneventful night . covid 19 positive has baseline home oxygen 1-3 l nc. on 1 l oxygen bioxx. PT planning to dc home soon & has home oxygen set up. PT reports no bm since admit, bowel care orders obtained & started.
[2020-02-07 05:52] LABS: IMMATURE GRAN ABSOLUTE AUTO 0.18 K/mm3 (0.00-0.10); IMMATURE GRAN PERCENT AUTO 1 % (0-1); LYMPHOCYTES ABSOLUTE AUTO 12.27 K/mm3 (0.84-5.20); LYMPHOCYTES PERCENT AUTO 57 % (21-46); MONOCYTES ABSOLUTE AUTO 0.85 K/mm3 (0.16-1.47); MONOCYTES PERCENT AUTO 4 % (4-13); NEUTROPHILS ABSOLUTE AUTO 8.09 K/mm3 (1.96-9.15); NEUTROPHILS PERCENT AUTO 38 % (41-73)
[2020-02-07 05:59] LABS: International Normalized Ratio 1.16; Prothrombin Time Results 12.3 Sec (9.7-11.5)
[2020-02-07 06:05] LABS: Alanine Aminotransfer (ALT/SGP 138 U/L (12-78); Alk Phos 54 U/L (50-136); Anion Gap 4 mmol/L (6-16); Aspartate Aminotrans (AST/SGOT 89 U/L (12-37); Bilirubin, Total 0.6 mg/dL (0.1-1.0); Blood Urea Nitrogen 23 mg/dL (8-24); Bun/Creatinine Ratio 26.9 (12.0-20.0); CO2, Blood 30 mmol/L (21-32); CPK Creatine Kinase 27 U/L (39-308); Calcium, Blood 8.6 mg/dL (8.5-10.1); Chloride, Blood 105 mmol/L (98-108); Creatinine, Blood 0.85 mg/dL (0.60-1.20); Glomerular Filtration Rate >60 (60-); Glucose, Blood 110 mg/dL (70-99); Potassium, Blood 4.6 mmol/L (3.5-5.5); Sodium, Blood 139 mmol/L (136-145)
[2020-02-07] MEDS ORDERED: ACET325 PO (12:25)
[2020-02-07] MEDS ORDERED: ASPI81CH PO (12:26)
[2020-02-07] MEDS ORDERED: BENZ100A PO (12:26)
[2020-02-07] MEDS ORDERED: ALBU90OI INH (12:26)
[2020-02-07] MEDS ORDERED: BISA10S PR (12:27)
[2020-02-07] MEDS ORDERED: Q-Tussin100 MG/5 M PO (12:28)
[2020-02-07] MEDS ORDERED: DOXY100 PO (12:29)
[2020-02-07] MEDS ORDERED: DOCU100 PO (12:29)
[2020-02-07] MEDS ORDERED: VISBIOME PROBIOTIC PO (12:32)
--- NOTE | 2020-02-07 15:16 | NUR ---
PT DISCHARGED HOME PER DR ESPARZA'S ORDER. PT ON ROOM AIR ALL MORING RUNNING 92-93% PT'S STATED THEY HAVE O2 AT HOME SHE WAS INSTRUCTED FOR PT TO MAINTAIN ABOVE 90% O2. ALL PAPERWORK WAS REVIEWED AND SPOKE WITH PT'S ABOUT MEDICATIONS OVER PHONE. MEDICATIONS FAXED TO [facility]. PT AOX4 AND COOPERATIVE OF CARE. PT ABLE TO BE A STAND BY TRANSFER TO WHEEL CHAIR. THIS BRAKE REPAIRER AIR ESCORTED OUT AND PICKED PT UP IN CAR. ALL PERSONAL BELONINGS WERE COLLECTED AND WITH PT.
== END 2020-02-07 14:48 | disposition home or self-care (01) | DRG 177 ==
LOC: ER 06:04 → ERHOLD 08:55 → MEDS 08:55
PROVIDERS: Emergency Medicine; Family Medicine; Internal Medicine; Nurse Practitioner Acute Care; ADMIT Internal Medicine
PROC: XW033E5 Introduction of Remdesivir Anti-infective into Peripheral Vein, Percutaneous Approach, New Technology Group 5 (ICD-10-PCS; principal; 2020-02-02)
PROC: 3E0333Z Introduction of Anti-inflammatory into Peripheral Vein, Percutaneous Approach (ICD-10-PCS; 2020-02-02)
DX: U07.1 COVID-19 (principal); J12.89 Other viral pneumonia; J96.01 Acute respiratory failure with hypoxia; C95.10 Chronic leukemia of unspecified cell type not having achieved remission; N17.9 Acute kidney failure, unspecified; E86.0 Dehydration; I10 Essential (primary) hypertension; Z99.81 Dependence on supplemental oxygen; N40.0 Benign prostatic hyperplasia without lower urinary tract symptoms; E78.5 Hyperlipidemia, unspecified
CPT/HCPCS: 36415; 71045; 80053; 82550; 82728; 83615; 83735; 84100; 85025; 85027; 85379; 85610; 86140; 93005; 93010; 94761; 94762; 96361; 96365; 96375; 99285-25; A9270-GY; J1650; J2405; J7030; J7050

== ENCOUNTER → 2020-03-13 | Outpatient (CLI) | payer MEDICARE, OTHER ==
[~2020-03-13] MED LIST changes: +ACET325 PO; +ALBU90OI INH; +ALLO300 PO; +ATOR20 PO; +BENZ100A PO; +BISA10S PR; +DOXY100 PO; +LOSARTAN-HCTZ1 EAC5 PO; +ONDA4ODT SL; +Q-Tussin100 MG/5 M PO; +TAMS.4ER PO; +VISBIOME PROBIOTIC PO
== END ==
LOC: PLD 11:09 → LAB SHORT 11:09
DX: C44.219 Basal cell carcinoma of skin of left ear and external auricular canal (principal)
CPT/HCPCS: 88305

== ENCOUNTER → 2020-06-18 | Outpatient (CLI) | payer MEDICARE, OTHER | END | disposition home or self-care (01) | LOC: PLD 11:32 → LAB SHORT 11:32 | DX: C44.311 Basal cell carcinoma of skin of nose (principal); C44.41 Basal cell carcinoma of skin of scalp and neck; C44.319 Basal cell carcinoma of skin of other parts of face | CPT/HCPCS: 88305 ==

== ENCOUNTER → 2020-07-09 | Outpatient (CLI) | payer MEDICARE, OTHER ==
[2020-07-09 15:34] LABS: Hematocrit 44.7 % (37.0-53.0); Hemoglobin 14.3 g/dL (13.5-17.5); Mean Corpuscular HGB 30.4 pg (26.0-34.0); Mean Corpuscular Volume 95 fL (80-100); Mean Platelet Volume 10.8 fL (9.1-12.4); Platelet Count 128 K/mm3 (150-400); RDW Coefficient Variation 14.9 % (11.7-14.2); RDW Standard Deviation 46.5 fL (35.1-46.3); Red Blood Cell Count 4.71 M/mm3 (4.30-5.90); White Blood Cell Count 16.18 K/mm3 (4.00-11.30)
[2020-07-09 16:01] LABS: Alanine Aminotransfer (ALT/SGP 27 U/L (12-78); Albumin, Blood 4.1 g/dL (3.4-5.0); Albumin/Globulin Ratio 1.9 (0.8-1.8); Alk Phos 83 U/L (50-136); Anion Gap 1 mmol/L (6-16); Aspartate Aminotrans (AST/SGOT 44 U/L (12-37); Bilirubin, Total 0.6 mg/dL (0.1-1.0); Blood Urea Nitrogen 20 mg/dL (8-24); Bun/Creatinine Ratio 17.5 (12.0-20.0); CO2, Blood 31 mmol/L (21-32); Calcium, Blood 8.2 mg/dL (8.5-10.1); Chloride, Blood 107 mmol/L (98-108); Creatinine, Blood 1.14 mg/dL (0.60-1.20); Globulin, Blood 2.2 g/dL (2.2-4.0); Glomerular Filtration Rate >60 (60-); Glucose, Blood 102 mg/dL (70-99); Phosphorus, Blood 2.5 mg/dL (2.5-4.9); Potassium, Blood 4.1 mmol/L (3.5-5.5); Sodium, Blood 139 mmol/L (136-145); Total Protein, Blood 6.3 g/dL (6.4-8.2)
[2020-07-09 18:16] LABS: BASOPHILS PERCENT MAN 0 % (0-2); EOSINOPHILS ABSOLUTE MAN 0.48 K/mm3 (0.00-0.68); EOSINOPHILS PERCENT MAN 3 % (0-6); LYMPHOCYTES % ATYPICAL MANUAL 15 % (0-0); LYMPHOCYTES ABSOLUTE MAN 12.13 K/mm3 (0.84-5.20); LYMPHOCYTES PERCENT MAN 60 % (21-46); MONOCYTES ABSOLUTE MAN 1.13 K/mm3 (0.16-1.47); MONOCYTES PERCENT MAN 7 % (4-13); NEUTROPHILS ABSOLUTE MAN 2.42 K/mm3 (1.96-9.15); SEG NEUTROPHILS PERCENT MAN 15 % (41-73); TOTAL CELLS COUNTED 100
== END | disposition home or self-care (01) ==
LOC: LAB SHORT 10:00
PROVIDERS: Internal Medicine Hematology & Oncology
DX: C91.10 Chronic lymphocytic leukemia of B-cell type not having achieved remission (principal)
CPT/HCPCS: 80053; 84100; 85025

== ENCOUNTER → 2020-07-20 | Outpatient (CLI) | payer MEDICARE, OTHER | LOC: LAB EV 08:24 → LAB SHORT 08:24 | DX: J02.9 Acute pharyngitis, unspecified (principal) | CPT/HCPCS: 87081 ==

== ENCOUNTER → 2020-07-22 | Outpatient (CLI) | payer MEDICARE, OTHER ==
[2020-07-22 10:58] LABS: BASOPHILS ABSOLUTE AUTO 0.04 K/mm3 (0.00-0.23); BASOPHILS PERCENT AUTO 0 % (0-2); EOSINOPHILS ABSOLUTE AUTO 0.09 K/mm3 (0.00-0.68); EOSINOPHILS PERCENT AUTO 0 % (0-6); Hematocrit 46.3 % (37.0-53.0); Mean Corpuscular HGB 29.2 pg (26.0-34.0); Mean Corpuscular HGB Conc 32.4 g/dL (31.5-36.5); Mean Corpuscular Volume 90 fL (80-100); Mean Platelet Volume 10.3 fL (9.1-12.4); Platelet Count 146 K/mm3 (150-400); RDW Coefficient Variation 14.7 % (11.7-14.2); RDW Standard Deviation 48.3 fL (35.1-46.3); Red Blood Cell Count 5.14 M/mm3 (4.30-5.90); White Blood Cell Count 23.79 K/mm3 (4.00-11.30)
[2020-07-22 11:09] LABS: Alanine Aminotransfer (ALT/SGP 29 U/L (12-78); Albumin, Blood 4.1 g/dL (3.4-5.0); Albumin/Globulin Ratio 1.2 (0.8-1.8); Alk Phos 85 U/L (40-126); Anion Gap 11 mmol/L (6-16); Aspartate Aminotrans (AST/SGOT 38 U/L (12-37); Blood Urea Nitrogen 14 mg/dL (8-24); Bun/Creatinine Ratio 13.1 (12.0-20.0); CO2, Blood 29 mmol/L (21-32); Calcium, Blood 8.8 mg/dL (8.5-10.1); Chloride, Blood 101 mmol/L (98-108); Creatinine, Blood 1.07 mg/dL (0.60-1.20); Globulin, Blood 3.4 g/dL (2.2-4.0); Glomerular Filtration Rate >60 (60-); Glucose, Blood 124 mg/dL (70-99); Sodium, Blood 141 mmol/L (136-145); Total Protein, Blood 7.5 g/dL (6.4-8.2)
[2020-07-22 11:11] LABS: IMMATURE GRAN ABSOLUTE AUTO 0.07 K/mm3 (0.00-0.10); IMMATURE GRAN PERCENT AUTO 0 % (0-1); LYMPHOCYTES ABSOLUTE AUTO 13.81 K/mm3 (0.84-5.20); LYMPHOCYTES PERCENT AUTO 58 % (21-46); MONOCYTES ABSOLUTE AUTO 2.27 K/mm3 (0.16-1.47); MONOCYTES PERCENT AUTO 10 % (4-13); NEUTROPHILS ABSOLUTE AUTO 7.51 K/mm3 (1.96-9.15); NEUTROPHILS PERCENT AUTO 32 % (41-73)
[2020-07-22 13:41] LABS: BAND PERCENT MAN 1 % (0-8); BASOPHILS PERCENT MAN 0 % (0-2); EOSINOPHILS PERCENT MAN 0 % (0-6); LYMPHOCYTES % ATYPICAL MANUAL 30 % (0-0); LYMPHOCYTES ABSOLUTE MAN 14.98 K/mm3 (0.84-5.20); LYMPHOCYTES PERCENT MAN 33 % (21-46); MONOCYTES ABSOLUTE MAN 0.71 K/mm3 (0.16-1.47); MONOCYTES PERCENT MAN 3 % (4-13); NEUTROPHILS ABSOLUTE MAN 8.08 K/mm3 (1.96-9.15); SEG NEUTROPHILS PERCENT MAN 33 % (41-73); TOTAL CELLS COUNTED 100
== END ==
LOC: LAB SHORT 10:50 → LAB EV 10:50
PROVIDERS: Physician Assistant Medical
DX: J36 Peritonsillar abscess (principal)
CPT/HCPCS: 80053; 85025

== ENCOUNTER → 2020-10-15 | Outpatient (CLI) | payer MEDICARE, OTHER | LOC: LAB SHORT 11:56 → LAB 11:56 | DX: D48.5 Neoplasm of uncertain behavior of skin (principal); C44.319 Basal cell carcinoma of skin of other parts of face; Z91.048 Other nonmedicinal substance allergy status | CPT/HCPCS: 88305 ==

== ENCOUNTER → 2021-04-09 | Outpatient (CLI) | payer MEDICARE, OTHER | END | disposition home or self-care (01) | LOC: LAB SHORT 11:33 | DX: C44.41 Basal cell carcinoma of skin of scalp and neck (principal); C44.319 Basal cell carcinoma of skin of other parts of face; C44.311 Basal cell carcinoma of skin of nose | CPT/HCPCS: 88305 ==

== ENCOUNTER → 2021-05-01 | Outpatient (CLI) | payer MEDICARE, OTHER | END | disposition home or self-care (01) | LOC: LAB SHORT 07:44 | DX: C44.41 Basal cell carcinoma of skin of scalp and neck (principal); D22.4 Melanocytic nevi of scalp and neck | CPT/HCPCS: 88305 ==

== ENCOUNTER → 2021-06-18 | Outpatient (CLI) | payer MEDICARE, OTHER ==
[~2021-06-18] MED LIST changes: +AKWA Tears15 ML RIGHTEYE; +AMOCLA875 PO; +CEPH500 PO; +Cleocin HCl300 MG PO; +Flonase 0.05% N16 GM; +IBU800 M1 PO; +LOSARTAN-HCTZ1 EACH PO; +MONT10T PO; +MULTI-VITAMIN1 EAC2 PO; +MUPIROCIN TOP; +Niacinamide500 MG PO; +Nitrofurantoin100 M1 PO; +OXYC5 PO; +VISBIOME 112.51 EACH PO; +Vitamin C100 MG PO; +ZYRTEC10 M1 PO
== END | disposition home or self-care (01) ==
LOC: LAB SHORT 14:56 → PLD 14:56 → LAB 14:56
DX: C44.519 Basal cell carcinoma of skin of other part of trunk (principal)
CPT/HCPCS: 88305

== ENCOUNTER 2021-06-21 01:53 | Emergency (ER) | payer MEDICARE, OTHER ==
[~2021-06-21] VITALS: Ht 188 cm; Wt 117.9 kg
[~2021-06-21 01:53] MED LIST changes: -AKWA Tears15 ML RIGHTEYE; -AMOCLA875 PO; -CEPH500 PO; -Cleocin HCl300 MG PO; -Flonase 0.05% N16 GM; -IBU800 M1 PO; -LOSARTAN-HCTZ1 EACH PO; -MONT10T PO; -MULTI-VITAMIN1 EAC2 PO; -MUPIROCIN TOP; -Niacinamide500 MG PO; -Nitrofurantoin100 M1 PO; -OXYC5 PO; -VISBIOME 112.51 EACH PO; -Vitamin C100 MG PO; -ZYRTEC10 M1 PO
[2021-06-21 04:12] LABS: Hematocrit 44.5 % (37.0-53.0); Hemoglobin 13.7 g/dL (13.5-17.5); Mean Corpuscular HGB Conc 30.8 g/dL (31.5-36.5); Mean Corpuscular Volume 98 fL (80-100); Platelet Count 123 K/mm3 (150-400); RDW Coefficient Variation 14.6 % (11.7-14.2); RDW Standard Deviation 52.6 fL (35.1-46.3); Red Blood Cell Count 4.56 M/mm3 (4.30-5.90)
[2021-06-21 04:17] LABS: White Blood Cell Count 63.09 K/mm3 (4.00-11.30)
[2021-06-21 04:30] LABS: Albumin, Blood 4.2 g/dL (3.4-5.0); Albumin/Globulin Ratio 1.6 (0.8-1.8); Bilirubin, Total 0.5 mg/dL (0.1-1.0); Bun/Creatinine Ratio 23.8 (12.0-20.0); Calcium, Blood 8.7 mg/dL (8.5-10.1); Creatinine, Blood 1.43 mg/dL (0.60-1.20); Globulin, Blood 2.7 g/dL (2.2-4.0); Potassium, Blood 4.7 mmol/L (3.5-5.5); Total Protein, Blood 6.9 g/dL (6.4-8.2)
[2021-06-21 06:26] LABS: BASOPHILS PERCENT MAN 0 % (0-2); EOSINOPHILS PERCENT MAN 0 % (0-6); LYMPHOCYTES ABSOLUTE MAN 51.73 K/mm3 (0.84-5.20); LYMPHOCYTES PERCENT MAN 82 % (21-46); MONOCYTES ABSOLUTE MAN 2.52 K/mm3 (0.16-1.47); MONOCYTES PERCENT MAN 4 % (4-13); OTHER CELL PERCENT MAN 4 % (0-0); SEG NEUTROPHILS PERCENT MAN 10 % (41-73); TOTAL CELLS COUNTED 100
[2021-06-21 07:37] LABS: Source, Urine Voided
[2021-06-21 07:43] LABS: Appearance, Urine Hazy (Clear); Bilirubin, Urine Neg (Neg); Blood, Urine 5+ (Neg); Color, Urine Yellow (P-Yellow); Glucose Qualitative, Urine Neg (Neg); Ketones, Urine 1+ (Neg); Leukocyte Esterase, Urine 1+ (Neg); Nitrite, Urine Neg (Neg); Protein, Urine 2+ (Neg); Specific Gravity, Urine 1.015 (1.003-1.022); Urobilinogen, Urine NORM (Normal)
[2021-06-21 08:00] LABS: Bacteria Mod /hpf; Granular Casts 0-2 /lpf (0); Red Blood Cells, Urine TNTC /hpf (0-2); Squamous Epithelial Cells Rare /hpf (Few)
[2021-06-21] MEDS ORDERED: OXYC5 PO (09:04)
== END 2021-06-21 09:39 | disposition home or self-care (01) ==
LOC: ER 01:53
PROVIDERS: Emergency Medicine
DX: N13.2 Hydronephrosis with renal and ureteral calculous obstruction (principal); C95.90 Leukemia, unspecified not having achieved remission; E78.00 Pure hypercholesterolemia, unspecified; Z91.048 Other nonmedicinal substance allergy status; Z79.899 Other long term (current) drug therapy; Z79.82 Long term (current) use of aspirin
CPT/HCPCS: 74019; 74177; 80053; 81001; 83690; 85025; 93005; 93010; 96374; 96375; 96376; 99285-25; J1642; J1885; J2405; J3010; J7030; Q9967

== ENCOUNTER → 2021-07-15 | Outpatient (CLI) | payer MEDICARE, OTHER ==
[~2021-07-15] MED LIST changes: +OXYC5 PO
== END | disposition home or self-care (01) ==
LOC: LAB SHORT 12:18 → PLD 12:18
DX: C44.319 Basal cell carcinoma of skin of other parts of face (principal); C44.41 Basal cell carcinoma of skin of scalp and neck
CPT/HCPCS: 88305

== ENCOUNTER 2021-07-21 10:31 | Inpatient (IN) | payer MEDICARE, OTHER ==
[~2021-07-21] VITALS: Ht 188 cm; Wt 111.2 kg
[2021-07-21 11:14] LABS: Hematocrit 43.9 % (37.0-53.0); Hemoglobin 13.7 g/dL (13.5-17.5); Mean Corpuscular HGB 29.8 pg (26.0-34.0); Mean Corpuscular HGB Conc 31.2 g/dL (31.5-36.5); Mean Corpuscular Volume 96 fL (80-100); Mean Platelet Volume 9.2 fL (9.1-12.4); Platelet Count 140 K/mm3 (150-400); RDW Coefficient Variation 14.6 % (11.7-14.2); RDW Standard Deviation 51.1 fL (35.1-46.3); Red Blood Cell Count 4.59 M/mm3 (4.30-5.90)
[2021-07-21 11:18] LABS: White Blood Cell Count 51.31 K/mm3 (4.00-11.30)
[2021-07-21 11:32] LABS: Alanine Aminotransfer (ALT/SGP 23 U/L (12-78); Albumin/Globulin Ratio 1.3 (0.8-1.8); Alk Phos 89 U/L (50-136); Anion Gap 4 mmol/L (6-16); Aspartate Aminotrans (AST/SGOT 29 U/L (12-37); Bilirubin, Total 0.6 mg/dL (0.1-1.0); Blood Urea Nitrogen 17 mg/dL (8-24); Bun/Creatinine Ratio 20.5 (12.0-20.0); CO2, Blood 29 mmol/L (21-32); Calcium, Blood 8.9 mg/dL (8.5-10.1); Chloride, Blood 104 mmol/L (98-108); Creatinine, Blood 0.83 mg/dL (0.60-1.20); Globulin, Blood 3.1 g/dL (2.2-4.0); Glomerular Filtration Rate >60 (60-); Glucose, Blood 129 mg/dL (70-99); Potassium, Blood 4.3 mmol/L (3.5-5.5); Sodium, Blood 137 mmol/L (136-145); Total Protein, Blood 7.1 g/dL (6.4-8.2)
[2021-07-21 12:03] LABS: BASOPHILS PERCENT MAN 0 % (0-2); EOSINOPHILS PERCENT MAN 0 % (0-6); LYMPHOCYTES ABSOLUTE MAN 42.07 K/mm3 (0.84-5.20); LYMPHOCYTES PERCENT MAN 82 % (21-46); MONOCYTES PERCENT MAN 8 % (4-13); NEUTROPHILS ABSOLUTE MAN 5.13 K/mm3 (1.96-9.15); SEG NEUTROPHILS PERCENT MAN 10 % (41-73); TOTAL CELLS COUNTED 100
[2021-07-21 12:29] LABS: Source, Urine Clean Catch
[2021-07-21 12:37] LABS: Appearance, Urine Clear (Clear); Bilirubin, Urine Neg (Neg); Blood, Urine 4+ (Neg); Color, Urine Yellow (P-Yellow); Glucose Qualitative, Urine Neg (Neg); Ketones, Urine 1+ (Neg); Leukocyte Esterase, Urine Neg (Neg); Nitrite, Urine Neg (Neg); Protein, Urine 2+ (Neg); Specific Gravity, Urine 1.015 (1.003-1.022); Urobilinogen, Urine NORM (Normal)
[2021-07-21 12:52] LABS: Bacteria Rare /hpf; Squamous Epithelial Cells Not Seen /hpf (Few)
--- NOTE | 2021-07-21 18:29 | NUR ---
PATIENT ADMITTED FOR PERIORBITAL CELLULITIS. Pt admitted at 1500, VSS, SBP 156-176. Pt AOx4, reports weakness, but ambulates independently. Redness, edema right side of face/neck. Pt reports painful to the touch. Requested PRN tylenol for pain. IV vanco & unasyn given. IV in right AC, patent, LR fluid infusing. Pt reports weightloss, poor appetite d/t Leukemia, pt ate 25% of dinner. Pt resting in bed, no other concerns at this time.
[2021-07-21] MEDS ORDERED: MONT10T PO (22:38)
[2021-07-21] MEDS ORDERED: MULTI-VITAMIN1 EAC2 PO (22:40)
[2021-07-21] MEDS ORDERED: ZYRTEC10 M1 PO (22:41)
[2021-07-21] MEDS ORDERED: Vitamin C100 MG PO (22:42)
[2021-07-21] MEDS ORDERED: Niacinamide500 MG PO (22:43)
[2021-07-21] MEDS ORDERED: MUPIROCIN TOP (22:44)
[2021-07-21] MEDS ORDERED: IBU800 M1 PO (22:45)
[2021-07-21] MEDS ORDERED: Nitrofurantoin100 M1 PO (22:46)
[2021-07-21] MEDS ORDERED: CEPH500 PO (22:47)
--- NOTE | 2021-07-22 02:56 | NUR ---
SHIFT SUMMARY: A/OX4, PATIENT STANDS AT BEDSIDE INDEPENDENT AND AMBULATES WITH SUPERVISION DUE TO REPORTED WEAKNESS WHEN WALKING. ONLY PAIN REPORTED THROUGHOUT THE SHIFT WAS A MILD HEADACHE TREATED WITH PRN ACETAMINOPHEN. RIGHT EYE AND RIGHT JAW AREA REMAINS RED AND SWOLLEN UNABLE TO OPEN AT THIS TIME. NO COMPLAINTS OF DIFFICULTY SWALLOWING OR BREATHING. PATIENT CALLS APPROPRIATELY, BED IN LOW POSITION, CALL MACHADO IN REACH.
[2021-07-22 05:17] LABS: Hematocrit 40.4 % (37.0-53.0); Hemoglobin 12.7 g/dL (13.5-17.5); Mean Corpuscular HGB Conc 31.4 g/dL (31.5-36.5); Mean Corpuscular Volume 96 fL (80-100); Mean Platelet Volume 9.5 fL (9.1-12.4); NRBC ABSOLUTE 0.04 K/mm3 (0.00-0.02); NRBC Auto 0.1 /100 WBC (0.0-0.2); Platelet Count 123 K/mm3 (150-400); RDW Coefficient Variation 14.7 % (11.7-14.2); RDW Standard Deviation 51.5 fL (35.1-46.3); Red Blood Cell Count 4.23 M/mm3 (4.30-5.90); White Blood Cell Count 48.63 K/mm3 (4.00-11.30)
[2021-07-22 05:49] LABS: Anion Gap 4 mmol/L (6-16); Blood Urea Nitrogen 13 mg/dL (8-24); CO2, Blood 30 mmol/L (21-32); Calcium, Blood 8.5 mg/dL (8.5-10.1); Chloride, Blood 106 mmol/L (98-108); Creatinine, Blood 0.81 mg/dL (0.60-1.20); Glomerular Filtration Rate >60 (60-); Glucose, Blood 126 mg/dL (70-99); Potassium, Blood 4.1 mmol/L (3.5-5.5); Sodium, Blood 140 mmol/L (136-145)
--- NOTE | 2021-07-22 17:52 | NUR ---
IV FLUIDS HAD ASSISTANCE FROM DARLINE MIGUEL WITH INPUTTING ORDERS FOR IVF'S KVO.
--- NOTE | 2021-07-22 18:32 | NUR ---
SHIFT SUMMARY PT A&OX4. VSS. DENIES PAIN. L EYE & L SIDE OF FACE TO HIS NECK IS RED AND SWOLLEN. UNABLE TO OPEN HIS L EYE MOST OF THE DAY, BY END OF SHIFT HE IS ABLE TO OPEN HIS EYE & SWELLING HAS DECREASED. IS INDEPENDENT IN THE ROOM FOR REST ROOM USE THOUGH CALLS FOR STDBY WHEN GETTING OUT OF BED. INSERTED NEW PIV, OLD PIV WAS LEAKING. STARTED WITH 2 ATTEMPTS USING A 20 G. OLD PIV DC'D WITH CATH TIP INTACT, SITE WITHOUT REDNESS OR SWELLING.
[2021-07-23 02:11] LABS: Hematocrit 41.4 % (37.0-53.0); Hemoglobin 13.3 g/dL (13.5-17.5); Mean Corpuscular HGB 30.4 pg (26.0-34.0); Mean Corpuscular HGB Conc 32.1 g/dL (31.5-36.5); Mean Corpuscular Volume 95 fL (80-100); Mean Platelet Volume 9.2 fL (9.1-12.4); NRBC ABSOLUTE 0.03 K/mm3 (0.00-0.02); NRBC Auto 0.1 /100 WBC (0.0-0.2); Platelet Count 119 K/mm3 (150-400); RDW Coefficient Variation 14.6 % (11.7-14.2); RDW Standard Deviation 50.6 fL (35.1-46.3); Red Blood Cell Count 4.37 M/mm3 (4.30-5.90)
[2021-07-23 02:17] LABS: White Blood Cell Count 52.83 K/mm3 (4.00-11.30)
[2021-07-23 02:24] LABS: Anion Gap 6 mmol/L (6-16); Blood Urea Nitrogen 14 mg/dL (8-24); CO2, Blood 31 mmol/L (21-32); Calcium, Blood 8.5 mg/dL (8.5-10.1); Chloride, Blood 102 mmol/L (98-108); Creatinine, Blood 0.88 mg/dL (0.60-1.20); Glomerular Filtration Rate >60 (60-); Glucose, Blood 114 mg/dL (70-99); Potassium, Blood 3.7 mmol/L (3.5-5.5); Sodium, Blood 139 mmol/L (136-145); Vancomycin, Trough 11.8 ug/mL (5.0-10.0)
[2021-07-23 02:54] LABS: BASOPHILS PERCENT MAN 0 % (0-2); EOSINOPHILS PERCENT MAN 0 % (0-6); LYMPHOCYTES % ATYPICAL MANUAL 23 % (0-0); LYMPHOCYTES ABSOLUTE MAN 46.49 K/mm3 (0.84-5.20); LYMPHOCYTES PERCENT MAN 65 % (21-46); MONOCYTES ABSOLUTE MAN 3.16 K/mm3 (0.16-1.47); MONOCYTES PERCENT MAN 6 % (4-13); NEUTROPHILS ABSOLUTE MAN 3.16 K/mm3 (1.96-9.15); SEG NEUTROPHILS PERCENT MAN 6 % (41-73); TOTAL CELLS COUNTED 100
--- NOTE | 2021-07-23 04:11 | NUR ---
PT A & OX4. SLIGHTLY HYPERTENSIVE. OTHER V/S WNL. IV TO R) HAND. PT REPORTED PAIN TO R) EYE/FOREHEAD. PRN PO SARAH GIVEN FOR PAIN PER EMAR. INDEPEDANT. PT VOIDED W/O DIFFICULTY. PRN AMBIEN GIVEN FOR IMSOMNIA AT HS PER EMAR. NO BM THIS SHIFT. WILL CONTINUE TO MONITOR.
--- NOTE | 2021-07-23 16:34 | NUR ---
Supportive visit this afternoon. Pt resting in bed and reports mild 2/10 pain in his eye. Pt denies dyspnea and anxiety at this time. Pt's spouse Kaylyn at bedside. Reviewed plan of care and offered therapeutic listening. Pt reports living at home with his . and Pt report adequate support at home between family and friends. Continued therapeutic listening and validated concerns. Brief discussion to consider completing an advanced directive. Pt agreeable to take one home to complete. Instructed on each section to complete and discussed the importance of appointing a healthcare physician representative. Pt and spouse express appreciation and report no other concerns at this time. Palliative Care will remain available
--- NOTE | 2021-07-23 17:17 | NUR ---
SHIFT SUMMARY PT AxOx4. PLEASANT AND COOPERATIVE WITH CARE. IN THE ROOM MOST OF THIS SHIFT, UPDATED ON PLAN OF CARE. PT MEDICATED FOR PAIN/SWELLING x1 TODAY WITH REPORTED RELIEF. PT ALSO USING ICE PACK AND COLD WASH CLOTHS TO FACE FOR DISCOMFORT. VITALS REVIEWED. PT DENIES ANY NEEDS AT THIS TIME. CURRENTLY RESTING IN BED WITH CALL LIGHT IN REACH.
--- NOTE | 2021-07-24 04:28 | NUR ---
PT A & OX4. ELEVATED BP. SCHEDULED BP GIVEN FOR HTN. ALL OTHER V/S WNL. REGULAR DIET. NEW IV TO L) FOREARM. PT C/O PAIN TO R)EYE; PRN PO SARAH GIVEN FOR PAIN PER EMAR. INDEPEDANT. PT VOIDED W/O DIFFICULTY. NO BM THIS SHIFT. PRN AMBIEN GIVEN FOR IMSOMNIA PER EMAR. WILL CONTINUE TO MONITOR.
[2021-07-24 05:10] LABS: Hematocrit 42.5 % (37.0-53.0); Hemoglobin 13.6 g/dL (13.5-17.5); Mean Corpuscular HGB 30.4 pg (26.0-34.0); Mean Corpuscular Volume 95 fL (80-100); Mean Platelet Volume 9.3 fL (9.1-12.4); Platelet Count 122 K/mm3 (150-400); RDW Coefficient Variation 14.8 % (11.7-14.2); RDW Standard Deviation 51.1 fL (35.1-46.3); Red Blood Cell Count 4.48 M/mm3 (4.30-5.90)
[2021-07-24 05:37] LABS: Anion Gap 9 mmol/L (6-16); Blood Urea Nitrogen 18 mg/dL (8-24); Bun/Creatinine Ratio 20.2 (12.0-20.0); CO2, Blood 29 mmol/L (21-32); Calcium, Blood 8.8 mg/dL (8.5-10.1); Chloride, Blood 101 mmol/L (98-108); Creatinine, Blood 0.89 mg/dL (0.60-1.20); Glomerular Filtration Rate >60 (60-); Glucose, Blood 132 mg/dL (70-99); Potassium, Blood 3.6 mmol/L (3.5-5.5); Sodium, Blood 139 mmol/L (136-145)
[2021-07-24 05:38] LABS: White Blood Cell Count 51.92 K/mm3 (4.00-11.30)
[2021-07-24 06:29] LABS: BASOPHILS PERCENT MAN 0 % (0-2); EOSINOPHILS PERCENT MAN 0 % (0-6); LYMPHOCYTES % ATYPICAL MANUAL 1 % (0-0); LYMPHOCYTES ABSOLUTE MAN 39.45 K/mm3 (0.84-5.20); LYMPHOCYTES PERCENT MAN 75 % (21-46); MONOCYTES ABSOLUTE MAN 5.19 K/mm3 (0.16-1.47); MONOCYTES PERCENT MAN 10 % (4-13); NEUTROPHILS ABSOLUTE MAN 7.26 K/mm3 (1.96-9.15); SEG NEUTROPHILS PERCENT MAN 14 % (41-73); TOTAL CELLS COUNTED 100
--- NOTE | 2021-07-24 10:09 | NUR ---
EMAR SCAN PROBLEM THE PT WAS SCANNED ALL MEDS WERE SCANNED INCLUDING ZOFRAN. THE PT WAS TAKING HIS MEDICATION THE EMAR DISAPPEARED FROM THE COMPUTER SCREEN AND LOCKED THE EMAR UNDER MY NAME. THE [facility] WAS CALLED TO THE ROOM TO HELP WITH THE PROBLEM THE SCANNED EMAR WAS LOST FORCING THE MANUAL INPUT OF THE MEDICATION. STUDENT RN ESAU WAS PRESENT DURING MEDICATION ADMINISTRATION
--- NOTE | 2021-07-24 16:45 | NUR ---
PT IS A/OX4, PLEASANT AND COOPERATIVE. PT IS UP IND IN HIS ROOM. THE PTS LEFT EYE HAS REDNESS AND SWELLING. THE PT WAS MEDICATED FOR ALY PAIN WITH TYLENOL PER HIS REQUEST X1 TODAY. THE PT APPEARS TO BE BREATHING EASILY ON RA AT THIS TIME. PT HAS BEEN IN TO SEE HIM T/O THE DAY, CALL LIGHT IN REACH. WILL CONTINUE TYO MONITOR AND ASSESS FOR CHANGES
--- NOTE | 2021-07-25 04:37 | NUR ---
patient with VSS on RA overnight. Patient moving independently in room. Able to reposition himself in bed. Skin inspection reveals no acute skin issues. Right eye red and swollen. patient unable to open his eye. States it feels hot and heavy. IV antibiotics administered per MAY. Voiding clear, yellow urine. Paitent taking tylenol for pain, see MAY. Patient hoping to return home after antibiotics complete.
--- NOTE | 2021-07-25 13:53 | NUR ---
AM ASSESSMENT I AGREE WITH AND WAS PRESENT DURING THE STUDENT NURSE ZELDA'S AM ASSESSMENT, AND HAVE REVIEWED AND AGREE WITH HER DOCUMENTATION ON THIS PATIENT
--- NOTE | 2021-07-25 16:22 | NUR ---
SHIFT SUMMARY PT IS A/O X 4. CALM AND COOPERATIVE WITH CARE. REDNESS AND EDEMA PRESENT ON R SIDE OF FACE/EYE. OPHTHALMOLOGY CONSULTED THIS AM. PT COMPLAINED OF PAIN IN R EYE. MEDICATED WITH TYLENOL PER REQUEST WITH LITTLE RELIEF REPORTED. OFFERED OXYCODONE AND PT DECLINED. PT IND IN ROOM. IN TO VISIT T/O DAY. PLAN TO CONTINUE IV ANTIBIOTICS. CALL LIGHT IN REACH.
--- NOTE | 2021-07-26 03:26 | NUR ---
SHIFT SUMMARY: A/O X4, PATIENT ADLIB AMBULATION AND ADL'S. NO REPORTS OF PAIN THROUGHOUT THE NIGHT. PATIENT CALL APPROPRIATELY. BED IN LOW POSITION, CALL MACHADO IN REACH.
[2021-07-26 05:18] LABS: Hematocrit 41.8 % (37.0-53.0); Hemoglobin 13.4 g/dL (13.5-17.5); Mean Corpuscular HGB 30.2 pg (26.0-34.0); Mean Corpuscular HGB Conc 32.1 g/dL (31.5-36.5); Mean Corpuscular Volume 94 fL (80-100); Mean Platelet Volume 9.6 fL (9.1-12.4); Platelet Count 119 K/mm3 (150-400); RDW Standard Deviation 52.2 fL (35.1-46.3); Red Blood Cell Count 4.43 M/mm3 (4.30-5.90); White Blood Cell Count 49.46 K/mm3 (4.00-11.30)
[2021-07-26 05:49] LABS: Albumin, Blood 3.6 g/dL (3.4-5.0); Anion Gap 7 mmol/L (6-16); Blood Urea Nitrogen 16 mg/dL (8-24); Bun/Creatinine Ratio 17.7 (12.0-20.0); CO2, Blood 29 mmol/L (21-32); Calcium, Blood 8.6 mg/dL (8.5-10.1); Chloride, Blood 100 mmol/L (98-108); Glomerular Filtration Rate 86 (60-); Glucose, Blood 119 mg/dL (70-99); Phosphorus, Blood 2.7 mg/dL (2.5-4.9); Sodium, Blood 136 mmol/L (136-145)
[2021-07-26 06:27] LABS: BASOPHILS PERCENT MAN 0 % (0-2); EOSINOPHILS PERCENT MAN 0 % (0-6); LYMPHOCYTES % ATYPICAL MANUAL 1 % (0-0); LYMPHOCYTES ABSOLUTE MAN 40.06 K/mm3 (0.84-5.20); LYMPHOCYTES PERCENT MAN 80 % (21-46); MONOCYTES ABSOLUTE MAN 4.45 K/mm3 (0.16-1.47); MONOCYTES PERCENT MAN 9 % (4-13); NEUTROPHILS ABSOLUTE MAN 4.94 K/mm3 (1.96-9.15); SEG NEUTROPHILS PERCENT MAN 10 % (41-73); TOTAL CELLS COUNTED 100
--- NOTE | 2021-07-26 18:35 | NUR ---
SHIFT SUMMARY PT A/O X4. CALM AND COOPERATIVE W/ CARE. REDNESS AND EDEMA ON R SIDE OF FACE/EYE. PT COMPLAINED OF PAIN X2 THIS SHIFT THAT WAS RELIEVED WITH TYLENOL AND WARM WASHCLOTH. DR MORLEY CALLED FOR RECOMMENDATIONS ON FLUSHING R EYE. EYE DROPS ORDERED. PT IS IND IN ROOM. IN T/O DAY. PLAN TO CONTINUE IV ANTIBIOTICS.
--- NOTE | 2021-07-26 19:30 | NUR ---
AM ASSESSEMENT I AGREE WITH AND WAS PRESENT DURING THE STUDENT RN AM ASSESSMENT, AND HAVE REVIEWED AND AGREE WITH HER DOCUMENTATION ON THIS PATIENT
[2021-07-27 02:05] LABS: Bun/Creatinine Ratio 21.7 (12.0-20.0); Calcium, Blood 8.5 mg/dL (8.5-10.1); Creatinine, Blood 0.92 mg/dL (0.60-1.20); Potassium, Blood 3.8 mmol/L (3.5-5.5); Vancomycin, Trough 14.4 ug/mL (5.0-10.0)
[2021-07-27 02:12] LABS: BASOPHILS ABSOLUTE AUTO 0.13 K/mm3 (0.00-0.23); BASOPHILS PERCENT AUTO 0 % (0-2); EOSINOPHILS ABSOLUTE AUTO 0.24 K/mm3 (0.00-0.68); EOSINOPHILS PERCENT AUTO 1 % (0-6); Hematocrit 40.8 % (37.0-53.0); Hemoglobin 13.1 g/dL (13.5-17.5); Mean Corpuscular HGB 30.8 pg (26.0-34.0); Mean Corpuscular HGB Conc 32.1 g/dL (31.5-36.5); Mean Corpuscular Volume 96 fL (80-100); Mean Platelet Volume 9.6 fL (9.1-12.4); NRBC ABSOLUTE 0.02 K/mm3 (0.00-0.02); Platelet Count 110 K/mm3 (150-400); RDW Coefficient Variation 15.3 % (11.7-14.2); RDW Standard Deviation 53.4 fL (35.1-46.3); Red Blood Cell Count 4.26 M/mm3 (4.30-5.90); White Blood Cell Count 45.43 K/mm3 (4.00-11.30)
[2021-07-27 02:17] LABS: IMMATURE GRAN PERCENT AUTO 0 % (0-1); LYMPHOCYTES ABSOLUTE AUTO 36.29 K/mm3 (0.84-5.20); LYMPHOCYTES PERCENT AUTO 80 % (21-46); MONOCYTES ABSOLUTE AUTO 5.63 K/mm3 (0.16-1.47); MONOCYTES PERCENT AUTO 12 % (4-13); NEUTROPHILS ABSOLUTE AUTO 3.04 K/mm3 (1.96-9.15); NEUTROPHILS PERCENT AUTO 7 % (41-73)
--- NOTE | 2021-07-27 04:02 | NUR ---
SHIFT SUMMARY: PT REMAINS A/OX4, ADLIB IN ROOM, INDEPENDENT REPOSITIONING IN BED. LEFT ARM POWERGLIDE IN PLACE WORKING WELL, OCCASIONALLY POSITIONAL TO FLUSH. PT COMPLAINED OF PERSISTANT HEADACHE AT THE BEGINNING UNRELIEVED BY TYLENOL- PRN OXYCODONE ADMINISTERED AND RELIEVED HEADACHE. RIGHT SIDE FACIAL SWELLING AND REDNESS CONTINUED, APPEARS TO BE SLIGHTLY INCREASED SWELLING ON EYELID AREA. WILL CONTINUE TO MONITOR. PT VOIDING WELL THROUGHOUT THE NIGHT, BED IN LOW POSITION AND CALL MACHADO REMAINS IN REACH.
--- NOTE | 2021-07-27 18:38 | NUR ---
SHIFT SUMMARY PT A&OX4. VSS. PT HAS RESTED THROUGHOUT SHIFT WITH AT BEDSIDE OFF & ON THROUGHOUT THE DAY. HAS DENIED PAIN. IS INDEPENDENT IN THE ROOM FOR RESTROOM USE. FACE REDNESS AND SWELLING APPEARS IMPROVED. CONTINUING WITH MD PRESCRIBED IV ANTI-BIOTICS.
--- NOTE | 2021-07-28 04:19 | NUR ---
PT A & OX4. V/S WNL. REGULAR DIET. INDEPENDANT. POWERGLIDE TO L) UPPER ARM FLUSHED W/O DIFFICULTY AND GOOD BLOOD RETURN NOTED. PT REPORTED PAIN TO R) EYE PRN TYLENOL GIVEN PER EMAR. NO BM THIS SHIFT. PT GIVEN PRN SENNA FOR CONSTIPATION. FLUIDS ENCOURAGED. PRN AMBIEN REQUESTED BY PATIENT FOR IMSOMNIA AND GIVEN PER EMAR. WILL CONTINUE TO MONITOR.
[2021-07-28 05:45] LABS: Hematocrit 42.9 % (37.0-53.0); Hemoglobin 13.6 g/dL (13.5-17.5); Mean Corpuscular HGB 30.4 pg (26.0-34.0); Mean Corpuscular HGB Conc 31.7 g/dL (31.5-36.5); Mean Corpuscular Volume 96 fL (80-100); Mean Platelet Volume 9.3 fL (9.1-12.4); NRBC ABSOLUTE 0.02 K/mm3 (0.00-0.02); Platelet Count 112 K/mm3 (150-400); RDW Coefficient Variation 15.2 % (11.7-14.2); RDW Standard Deviation 53.3 fL (35.1-46.3); Red Blood Cell Count 4.48 M/mm3 (4.30-5.90); White Blood Cell Count 42.88 K/mm3 (4.00-11.30)
[2021-07-28 06:04] LABS: Bun/Creatinine Ratio 17.1 (12.0-20.0); Calcium, Blood 8.9 mg/dL (8.5-10.1); Creatinine, Blood 0.76 mg/dL (0.60-1.20); Potassium, Blood 3.8 mmol/L (3.5-5.5)
[2021-07-28 06:49] LABS: BASOPHILS PERCENT MAN 0 % (0-2); EOSINOPHILS PERCENT MAN 0 % (0-6); LYMPHOCYTES ABSOLUTE MAN 38.16 K/mm3 (0.84-5.20); LYMPHOCYTES PERCENT MAN 89 % (21-46); MONOCYTES ABSOLUTE MAN 0.85 K/mm3 (0.16-1.47); MONOCYTES PERCENT MAN 2 % (4-13); NEUTROPHILS ABSOLUTE MAN 3.85 K/mm3 (1.96-9.15); SEG NEUTROPHILS PERCENT MAN 9 % (41-73); TOTAL CELLS COUNTED 100
--- NOTE | 2021-07-29 04:28 | NUR ---
PT A & OX4. V/S WNL. REGULAR DIET. POWERGLIDE L) UA. PT VOIDS W/O DIFFICULTY. A LARGE BM THIS SHIFT. INDEPEDANT IN ROOM. PT REPORTED PAIN TO R) EYE/FACE. PRN SARAH GIVEN FOR PAIN AND PRN AMBIEN GIVEN FOR IMSOMNIA PER EMAR. WILL CONTINUE TO MONITOR.
[2021-07-29 05:31] LABS: Hematocrit 40.5 % (37.0-53.0); Hemoglobin 12.9 g/dL (13.5-17.5); Mean Corpuscular HGB 30.5 pg (26.0-34.0); Mean Corpuscular HGB Conc 31.9 g/dL (31.5-36.5); Mean Corpuscular Volume 96 fL (80-100); Mean Platelet Volume 9.6 fL (9.1-12.4); Platelet Count 112 K/mm3 (150-400); RDW Coefficient Variation 15.2 % (11.7-14.2); RDW Standard Deviation 53.7 fL (35.1-46.3); Red Blood Cell Count 4.23 M/mm3 (4.30-5.90); White Blood Cell Count 41.88 K/mm3 (4.00-11.30)
[2021-07-29 05:49] LABS: Albumin, Blood 3.5 g/dL (3.4-5.0); Anion Gap 4 mmol/L (6-16); Blood Urea Nitrogen 15 mg/dL (8-24); Bun/Creatinine Ratio 17.3 (12.0-20.0); CO2, Blood 31 mmol/L (21-32); Calcium, Blood 8.2 mg/dL (8.5-10.1); Chloride, Blood 103 mmol/L (98-108); Creatinine, Blood 0.87 mg/dL (0.60-1.20); Glomerular Filtration Rate 87 (60-); Glucose, Blood 121 mg/dL (70-99); Potassium, Blood 4.2 mmol/L (3.5-5.5); Sodium, Blood 138 mmol/L (136-145)
[2021-07-29 07:12] LABS: BASOPHILS PERCENT MAN 0 % (0-2); EOSINOPHILS PERCENT MAN 0 % (0-6); LYMPHOCYTES ABSOLUTE MAN 37.69 K/mm3 (0.84-5.20); LYMPHOCYTES PERCENT MAN 90 % (21-46); MONOCYTES ABSOLUTE MAN 0.83 K/mm3 (0.16-1.47); MONOCYTES PERCENT MAN 2 % (4-13); NEUTROPHILS ABSOLUTE MAN 3.35 K/mm3 (1.96-9.15); SEG NEUTROPHILS PERCENT MAN 8 % (41-73); TOTAL CELLS COUNTED 100
[2021-07-29 13:31] LABS: Vancomycin, Trough 17.9 ug/mL (5.0-10.0)
--- NOTE | 2021-07-29 17:19 | NUR ---
SHIFT SUMMARY; PATIENT HAD UNEVENTFUL DAY. NADN. NO ACUTE CHANGES IN CONDITION. HE AMBULATES TO AND FROM BATHROOM WITHOUT ASSIST. SPOUSE ASSIST WHEN SHE IS VISITING OTHERWISE HE USES CALL LIGHT APPROPRIATELY FOR ASSIST WHEN NECESSARY. HIS VITAL SIGNS ARE WNL AND PATIENT REMAINS AFEBRILE. HE ASKS FOR TYLENOL THIS AFTERNOON FOR EYE AND FACIAL PAIN. HE HAS NO DIFFICULTY EATING OR DRINKING. ATTEMPTS TO OPEN HIS RIGHT EYE ARE DIFFICULT IT REMAINS VERY SWOLLEN. EYE DROPS WHEN ABLE.
--- NOTE | 2021-07-30 06:05 | NUR ---
PT A & OX4. V/S WNL. REGULAR DIET. INDEPENDANT. PT C/O PAIN. PRN SARAH GIVEN FOR PAIN PER EMAR. VOIDED W/O DIFFICULTY. NO BM THIS SHIFT. POWERGLIDE TO L) UPPER ARM. WILL CONTINUE TO MONITOR.
--- NOTE | 2021-07-30 16:29 | NUR ---
SHIFT SUMMARY PT IS AOX4, HE WAS ADMITTED WITH CELLULITIS TO THE RIGHT EYE. HE IS PLEASANT AND FOLLOWS DIRECTIONS WELL. HIS HAS BEEN HERE WITH HIM MOST OF THE DAY. HE DOES HAVE PAIN AT TIMES WITH HIS EYE AND PREFERS TO TAKE TYLENOL OVER THE ROXYCODONE THAT IS ORDERED. THE PROVIDER STATED DURING ROUNDS TODAY THAT SHE PLANS ON DISCHARGING HIM HOME TOMORROW WITH PO ABX. 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 HE LIKES TO SCRATCH HIS RIGHT EYE AND HAS BEEN ADVISED TO KEEP HIS HANDS SANITIZED TO PREVENT FURTHER INFECTION. WILL CONTINUE TO MONITOR AND ASSESS UNTIL NOC SHIFT ARRIVES.
[2021-07-31 06:57] LABS: Vancomycin, Trough 20.6 ug/mL (5.0-10.0)
[2021-07-31] MEDS ORDERED: Flonase 0.05% N16 GM (12:51)
[2021-07-31] MEDS ORDERED: LOSARTAN-HCTZ1 EACH PO (12:52)
[2021-07-31] MEDS ORDERED: AKWA Tears15 ML RIGHTEYE (12:53)
[2021-07-31] MEDS ORDERED: AMOCLA875 PO (12:54)
[2021-07-31] MEDS ORDERED: VISBIOME 112.51 EACH PO (12:54)
[2021-07-31] MEDS ORDERED: Cleocin HCl300 MG PO (12:56)
--- NOTE | 2021-07-31 15:26 | NUR ---
DISCHARGE SUMMARY PATIENT ALERT AND ORIENTED THROUGHOUT SHIFT. TOLERATING REGULAR DIET AND LIQUIDS. INDEPENDENT IN ROOM. RIGHT EYE SWOLLEN BUT IMPROVING PER DR SANON. ROLAND IV ABX. DISCHARGE ORDERS OBTAINED. DISCHARGE EDUCATION GIVEN ON WORSENING SYMPTOMS, FOLLOW UP APPTS, NEW MEDS. IV DC'D WITHIN NORMAL LIMITS. PATIENT LEFT UNIT AT 1520 VIA WHEELCHAIR WITH SPOUSE FOR HOME.
== END 2021-07-31 15:19 | disposition home or self-care (01) | DRG 603 ==
LOC: ER 10:31 → MEDS 13:28
PROVIDERS: Emergency Medicine; Internal Medicine; ADMIT Internal Medicine
DX: L03.213 Periorbital cellulitis (principal); N39.0 Urinary tract infection, site not specified; C91.10 Chronic lymphocytic leukemia of B-cell type not having achieved remission; E78.00 Pure hypercholesterolemia, unspecified; B95.2 Enterococcus as the cause of diseases classified elsewhere; E78.5 Hyperlipidemia, unspecified; I12.9 Hypertensive chronic kidney disease with stage 1 through stage 4 chronic kidney disease, or unspecified chronic kidney disease; D69.6 Thrombocytopenia, unspecified; N40.0 Benign prostatic hyperplasia without lower urinary tract symptoms; K59.00 Constipation, unspecified; N18.30 Chronic kidney disease, stage 3 unspecified; J32.0 Chronic maxillary sinusitis; Z87.01 Personal history of pneumonia (recurrent); Z85.828 Personal history of other malignant neoplasm of skin; Z86.16 Personal history of COVID-19; Z90.49 Acquired absence of other specified parts of digestive tract; Z98.890 Other specified postprocedural states; Z88.8 Allergy status to other drugs, medicaments and biological substances; Z91.048 Other nonmedicinal substance allergy status; Z79.82 Long term (current) use of aspirin; Z79.899 Other long term (current) drug therapy
CPT/HCPCS: 36415; 70487; 80048; 80053; 80069; 80202; 81001; 83605; 85025; 85027; 87040; 96365-59; 96375-59; 99285-25; A9270; C1751; J0295; J0360; J0690; J1650; J2405; J2543; J3370; J3465; J7030; J7040; J7050; J7060; J7120; Q9967

== ENCOUNTER → 2021-08-20 | Outpatient (CLI) | payer MEDICARE, OTHER ==
[~2021-08-20] MED LIST changes: +AKWA Tears15 ML RIGHTEYE; +AMOCLA875 PO; +CEPH500 PO; +Cleocin HCl300 MG PO; +Flonase 0.05% N16 GM; +IBU800 M1 PO; +LOSARTAN-HCTZ1 EACH PO; +MONT10T PO; +MULTI-VITAMIN1 EAC2 PO; +MUPIROCIN TOP; +Niacinamide500 MG PO; +Nitrofurantoin100 M1 PO; +VISBIOME 112.51 EACH PO; +Vitamin C100 MG PO; +ZYRTEC10 M1 PO
== END | disposition home or self-care (01) ==
LOC: LAB SHORT 12:12 → PLD 12:12
DX: C44.319 Basal cell carcinoma of skin of other parts of face (principal)
CPT/HCPCS: 88305; 88312

== ENCOUNTER → 2021-08-20 | Outpatient (CLI) | payer MEDICARE, OTHER | END | disposition home or self-care (01) | LOC: LAB 10:15 → LAB SHORT 10:15 | DX: L08.0 Pyoderma (principal) | CPT/HCPCS: 87070; 87205 ==

== ENCOUNTER → 2021-12-24 | Outpatient (CLI) | payer MEDICARE, OTHER ==
[2021-12-25 14:41] LABS: C DIFFICILE DNA POSITIVE (Negative)
== END | disposition home or self-care (01) ==
LOC: LAB SHORT 21:00 → LAB 21:00
PROVIDERS: Internal Medicine Hematology & Oncology
DX: R19.7 Diarrhea, unspecified (principal)
CPT/HCPCS: 87324; 87493

== ENCOUNTER → 2022-01-06 | Outpatient (CLI) | payer MEDICARE, OTHER | END | disposition home or self-care (01) | LOC: LAB SHORT 14:54 → PLD 14:54 | DX: C44.41 Basal cell carcinoma of skin of scalp and neck (principal); C44.319 Basal cell carcinoma of skin of other parts of face; C44.00 Unspecified malignant neoplasm of skin of lip | CPT/HCPCS: 88305 ==

== ENCOUNTER → 2022-01-15 | Outpatient (CLI) | payer MEDICARE, OTHER ==
[2022-01-16 02:47] LABS: Adenovirus F 40/41 Not Detected (NOT DETECT); Astrovirus Not Detected (NOT DETECT); Campylobacter Sp Not Detected (NOT DETECT); Cryptosporidium Not Detected (NOT DETECT); Cyclospora Cayetanensis Not Detected (NOT DETECT); E. Coli O157 Not Detected (NOT DETECT); Entamoeba Histolytica Not Detected (NOT DETECT); Enteroaggregative E. coli-EAEC Not Detected (NOT DETECT); Enteropathogenic E. coli-EPEC Not Detected (NOT DETECT); Enterotoxigenic E. coli-ETEC Not Detected (NOT DETECT); Giardia Lamblia Not Detected (NOT DETECT); Norovirus GI/GII Not Detected (NOT DETECT); Plesiomonas Shigelloides Not Detected (NOT DETECT); Rotavirus A Not Detected (NOT DETECT); Salmonella Sp Not Detected (NOT DETECT); Sapovirus Not Detected (NOT DETECT); Shiga Toxin-prod E. coli-STEC Not Detected (NOT DETECT); Shigella/Enteroin E. coli-EIEC Not Detected (NOT DETECT); Vibrio Cholerae Not Detected (NOT DETECT); Vibrio Sp Not Detected (NOT DETECT); Yersinia Enterocolitica Not Detected (NOT DETECT)
== END | disposition home or self-care (01) ==
LOC: LAB 17:49 → LAB SHORT 17:49
PROVIDERS: Nurse Practitioner
DX: R05.3 Chronic cough (principal); R19.7 Diarrhea, unspecified; Z86.19 Personal history of other infectious and parasitic diseases
CPT/HCPCS: 87507

== ENCOUNTER → 2022-04-02 | Outpatient (CLI) | payer MEDICARE, OTHER | END | disposition home or self-care (01) | LOC: LAB SHORT 12:07 → PLD 12:07 | DX: L57.0 Actinic keratosis (principal); L28.0 Lichen simplex chronicus | CPT/HCPCS: 88305 ==

== ENCOUNTER → 2022-04-10 | Outpatient (CLI) | payer MEDICARE, OTHER | END | disposition home or self-care (01) | LOC: PLD 11:29 → LAB SHORT 11:29 → LAB 11:29 | DX: C44.319 Basal cell carcinoma of skin of other parts of face (principal) | CPT/HCPCS: 88305 ==

== ENCOUNTER → 2022-06-30 | Outpatient (CLI) | payer MEDICARE, OTHER ==
[2022-06-30 20:01] LABS: Albumin, Blood 3.6 g/dL (3.4-5.0); Albumin/Globulin Ratio 1.7 (0.8-1.8); Bilirubin, Direct 0.2 mg/dL (0.0-0.3); Bilirubin, Indirect 0.4 mg/dL (0.1-0.7); Bilirubin, Total 0.6 mg/dL (0.1-1.0); Bun/Creatinine Ratio 21.3 (12.0-20.0); Calcium, Blood 7.9 mg/dL (8.5-10.1); Creatinine, Blood 0.99 mg/dL (0.60-1.20); Globulin, Blood 2.1 g/dL (2.2-4.0); Phosphorus, Blood 2.9 mg/dL (2.5-4.9); Total Protein, Blood 5.7 g/dL (6.4-8.2)
== END | disposition home or self-care (01) ==
LOC: LAB 09:00 → LAB SHORT 09:00
PROVIDERS: Family Medicine
DX: C91.10 Chronic lymphocytic leukemia of B-cell type not having achieved remission (principal)
CPT/HCPCS: 80053; 82248; 84100

== ENCOUNTER → 2022-07-21 | Outpatient (CLI) | payer MEDICARE, OTHER | END | disposition home or self-care (01) | LOC: PLD 07:30 → LAB SHORT 07:30 | DX: C44.321 Squamous cell carcinoma of skin of nose (principal); C44.319 Basal cell carcinoma of skin of other parts of face; C44.219 Basal cell carcinoma of skin of left ear and external auricular canal | CPT/HCPCS: 88305 ==

== ENCOUNTER → 2022-08-18 | Outpatient (CLI) | payer MEDICARE, OTHER ==
[2022-08-18 19:54] LABS: Alanine Aminotransfer (ALT/SGP 28 U/L (12-78); Albumin, Blood 4.1 g/dL (3.4-5.0); Albumin/Globulin Ratio 2.2 (0.8-1.8); Alk Phos 91 U/L (50-136); Anion Gap 6 mmol/L (6-16); Aspartate Aminotrans (AST/SGOT 44 U/L (12-37); Bilirubin, Direct <0.1 mg/dL (0.0-0.3); Bilirubin, Indirect Unable to Calculate mg/dL (0.1-0.7); Bilirubin, Total 0.5 mg/dL (0.1-1.0); Blood Urea Nitrogen 19 mg/dL (8-24); Bun/Creatinine Ratio 20.1 (12.0-20.0); CO2, Blood 30 mmol/L (21-32); Calcium, Blood 8.4 mg/dL (8.5-10.1); Chloride, Blood 108 mmol/L (98-108); Creatinine, Blood 0.94 mg/dL (0.60-1.20); Globulin, Blood 1.9 g/dL (2.2-4.0); Glomerular Filtration Rate 81 (60-); Glucose, Blood 130 mg/dL (70-99); Phosphorus, Blood 3.1 mg/dL (2.5-4.9); Potassium, Blood 4.2 mmol/L (3.5-5.5); Sodium, Blood 144 mmol/L (136-145)
== END | disposition home or self-care (01) ==
LOC: LAB SHORT 10:18 → LAB 10:18
PROVIDERS: Internal Medicine Hematology & Oncology
DX: C91.10 Chronic lymphocytic leukemia of B-cell type not having achieved remission (principal)
CPT/HCPCS: 80053; 80076; 82248; 84100

== ENCOUNTER → 2022-10-08 | Outpatient (CLI) | payer MEDICARE, OTHER | LOC: LAB 11:53 → PLD 11:53 → LAB SHORT 11:53 | DX: C44.319 Basal cell carcinoma of skin of other parts of face (principal) | CPT/HCPCS: 88305 ==

== ENCOUNTER → 2022-10-28 | Outpatient (CLI) | payer MEDICARE, OTHER | END | disposition home or self-care (01) | LOC: LAB SHORT 11:40 → PLD 11:40 | DX: C44.41 Basal cell carcinoma of skin of scalp and neck (principal); C44.219 Basal cell carcinoma of skin of left ear and external auricular canal; D48.5 Neoplasm of uncertain behavior of skin | CPT/HCPCS: 88305 ==

== ENCOUNTER → 2022-12-29 | Outpatient (CLI) | payer MEDICARE, OTHER | LOC: LAB 12:19 → LAB SHORT 12:19 | DX: C44.329 Squamous cell carcinoma of skin of other parts of face (principal); C44.319 Basal cell carcinoma of skin of other parts of face; C44.41 Basal cell carcinoma of skin of scalp and neck; C44.519 Basal cell carcinoma of skin of other part of trunk | CPT/HCPCS: 88305 ==

== ENCOUNTER → 2023-03-04 | Outpatient (CLI) | payer MEDICARE, OTHER ==
[2023-03-04 14:35] LABS: BASOPHILS ABSOLUTE AUTO 0.03 K/mm3 (0.00-0.23); BASOPHILS PERCENT AUTO 0 % (0-2); EOSINOPHILS ABSOLUTE AUTO 0.08 K/mm3 (0.00-0.68); EOSINOPHILS PERCENT AUTO 1 % (0-6); Hematocrit 46.9 % (37.0-53.0); Hemoglobin 14.9 g/dL (13.5-17.5); IMMATURE GRAN ABSOLUTE AUTO 0.03 K/mm3 (0.00-0.10); IMMATURE GRAN PERCENT AUTO 0 % (0-1); LYMPHOCYTES ABSOLUTE AUTO 3.35 K/mm3 (0.84-5.20); LYMPHOCYTES PERCENT AUTO 40 % (21-46); MONOCYTES ABSOLUTE AUTO 0.62 K/mm3 (0.16-1.47); MONOCYTES PERCENT AUTO 7 % (4-13); Mean Corpuscular HGB Conc 31.8 g/dL (31.5-36.5); Mean Corpuscular Volume 88 fL (80-100); Mean Platelet Volume 11.1 fL (9.1-12.4); NEUTROPHILS ABSOLUTE AUTO 4.26 K/mm3 (1.96-9.15); NEUTROPHILS PERCENT AUTO 51 % (41-73); Platelet Count 180 K/mm3 (150-400); RDW Coefficient Variation 15.9 % (11.7-14.2); RDW Standard Deviation 47.8 fL (35.1-46.3); Red Blood Cell Count 5.32 M/mm3 (4.30-5.90); White Blood Cell Count 8.37 K/mm3 (4.00-11.30)
== END | disposition home or self-care (01) ==
LOC: LAB SHORT 10:45 → LAB 10:45
PROVIDERS: Internal Medicine Hematology & Oncology
DX: C91.10 Chronic lymphocytic leukemia of B-cell type not having achieved remission (principal)
CPT/HCPCS: 85025

== ENCOUNTER → 2023-04-02 | Outpatient (CLI) | payer MEDICARE, OTHER | LOC: LAB 14:41 → LAB SHORT 14:41 | PROVIDERS: Internal Medicine Hematology & Oncology | DX: C91.10 Chronic lymphocytic leukemia of B-cell type not having achieved remission (principal); Z12.5 Encounter for screening for malignant neoplasm of prostate | CPT/HCPCS: G0103 ==

== ENCOUNTER → 2023-04-13 | Outpatient (CLI) | payer MEDICARE, OTHER | END | disposition home or self-care (01) | LOC: LAB 12:19 → LAB SHORT 12:19 | DX: C44.319 Basal cell carcinoma of skin of other parts of face (principal); C44.219 Basal cell carcinoma of skin of left ear and external auricular canal | CPT/HCPCS: 88305 ==

== ENCOUNTER → 2023-06-29 | Outpatient (CLI) | payer MEDICARE, OTHER ==
[~2023-06-29] MED LIST changes: +ATORVASTATIN CA20 MG PO; +MOTION RELIEF25 MG PO; +TAMSULOSIN HCL0.4 M1 PO
[2023-06-29 15:32] LABS: Hemoglobin 15.1 g/dL (13.5-17.5); Mean Corpuscular HGB Conc 33.6 g/dL (31.5-36.5); Mean Corpuscular Volume 89 fL (80-100); Mean Platelet Volume 10.4 fL (9.1-12.4); Platelet Count 191 K/mm3 (150-400); RDW Standard Deviation 47.6 fL (35.1-46.3); Red Blood Cell Count 5.04 M/mm3 (4.30-5.90); White Blood Cell Count 6.67 K/mm3 (4.00-11.30)
[2023-06-29 16:56] LABS: BAND PERCENT MAN 5 % (0-8); BASOPHILS PERCENT MAN 0 % (0-2); BLASTS PERCENT MAN 1 % (0-0); EOSINOPHILS ABSOLUTE MAN 0.06 K/mm3 (0.00-0.68); EOSINOPHILS PERCENT MAN 1 % (0-6); LYMPHOCYTES % ATYPICAL MANUAL 6 % (0-0); LYMPHOCYTES PERCENT MAN 51 % (21-46); MONOCYTES ABSOLUTE MAN 0.33 K/mm3 (0.16-1.47); MONOCYTES PERCENT MAN 5 % (4-13); SEG NEUTROPHILS PERCENT MAN 31 % (41-73); TOTAL CELLS COUNTED 100
== END ==
LOC: LAB SHORT 10:30 → LAB 10:30
PROVIDERS: Internal Medicine Hematology & Oncology
DX: D72.820 Lymphocytosis (symptomatic) (principal)
CPT/HCPCS: 85025; 85060

== ENCOUNTER → 2023-07-13 | Outpatient (CLI) | payer MEDICARE, OTHER | LOC: LAB SHORT 11:21 → LAB 11:21 | DX: C44.41 Basal cell carcinoma of skin of scalp and neck (principal); C44.319 Basal cell carcinoma of skin of other parts of face ==

== ENCOUNTER 2024-01-28 13:40 | Emergency (ER) | payer MEDICARE, OTHER ==
[~2024-01-28] VITALS: Ht 190.5 cm; Wt 109.8 kg
[2024-01-28 16:48] VITALS: BP 143/65
[2024-01-28] MEDS ORDERED: LIDOCAINE1 EACH TOP (17:32)
== END 2024-01-28 17:40 | disposition home or self-care (01) ==
LOC: ER 13:40
DX: S22.31XA Fracture of one rib, right side, initial encounter for closed fracture (principal); W18.30XA Fall on same level, unspecified, initial encounter
CPT/HCPCS: 71101; 99283-25

== ENCOUNTER 2024-05-23 13:44 | Emergency (ER) | payer MEDICARE, OTHER ==
[~2024-05-23] VITALS: Ht 188 cm; Wt 110.7 kg
[~2024-05-23 13:44] MED LIST changes: +LIDOCAINE1 EACH TOP
[2024-05-23 14:37] LABS: Source, Urine Clean Catch
[2024-05-23 14:41] LABS: Appearance, Urine Clear (Clear); Bilirubin, Urine Neg (Neg); Blood, Urine 4+ (Neg); Color, Urine Yellow (P-Yellow); Glucose Qualitative, Urine Neg (Neg); Ketones, Urine Neg (Neg); Leukocyte Esterase, Urine Neg (Neg); Nitrite, Urine Neg (Neg); Protein, Urine Neg (Neg); Urobilinogen, Urine NORM (Normal); pH, Urine 6.5 (5.0-8.0)
[2024-05-23 14:55] VITALS: BP 155/64
[2024-05-23 14:59] LABS: Albumin, Blood 4.5 g/dL (3.4-5.0); Albumin/Globulin Ratio 1.9 (0.8-1.8); Bilirubin, Total 0.8 mg/dL (0.1-1.0); Bun/Creatinine Ratio 17.4 (12.0-20.0); Calcium, Blood 9.1 mg/dL (8.5-10.1); Creatinine, Blood 1.21 mg/dL (0.60-1.20); Globulin, Blood 2.4 g/dL (2.2-4.0); Potassium, Blood 4.5 mmol/L (3.5-5.5); Total Protein, Blood 6.9 g/dL (6.4-8.2)
[2024-05-23 15:06] LABS: Bacteria Few /hpf; Red Blood Cells, Urine 25-50 /hpf (0-2); Squamous Epithelial Cells Rare /hpf (Few); White Blood Cells, Urine 0-2 /hpf (0-5)
== END 2024-05-23 15:45 | disposition home or self-care (01) ==
LOC: ER 13:44
PROVIDERS: Student in an Organized Health Care Education/Training Program
DX: R33.9 Retention of urine, unspecified (principal); Z87.438 Personal history of other diseases of male genital organs; Z91.048 Other nonmedicinal substance allergy status; Z91.09 Other allergy status, other than to drugs and biological substances; Z87.442 Personal history of urinary calculi; Z79.51 Long term (current) use of inhaled steroids; Z79.899 Other long term (current) drug therapy; Z79.02 Long term (current) use of antithrombotics/antiplatelets; Z79.83 Long term (current) use of bisphosphonates; Z79.891 Long term (current) use of opiate analgesic
CPT/HCPCS: 51702; 80053; 81001; 99283-25

== ENCOUNTER → 2024-08-17 | Outpatient (CLI) | payer MEDICARE, OTHER ==
[2024-08-17 10:17] LABS: Source, Urine Clean Catch
[2024-08-17 11:39] LABS: Appearance, Urine Cloudy (Clear); Bilirubin, Urine Neg (Neg); Blood, Urine 5+ (Neg); Color, Urine Brown (P-Yellow); Glucose Qualitative, Urine Neg (Neg); Ketones, Urine 1+ (Neg); Leukocyte Esterase, Urine 3+ (Neg); Nitrite, Urine Pos (Neg); Protein, Urine 3+ (Neg); Specific Gravity, Urine 1.015 (1.003-1.022); Urobilinogen, Urine 1+ (Normal)
[2024-08-17 12:06] LABS: Red Blood Cells, Urine TNTC /hpf (0-2); White Blood Cells, Urine TNTC /hpf (0-5)
[2024-08-17 12:07] LABS: Bacteria Many /hpf; Squamous Epithelial Cells Not Seen /hpf (Few)
== END ==
LOC: LAB SHORT 10:16 → LAB 10:16 → LAB FUT 08-16 12:15
PROVIDERS: Urology
DX: N39.0 Urinary tract infection, site not specified (principal)
CPT/HCPCS: 81001; 87077; 87086; 87186

== ENCOUNTER 2024-11-14 12:32 | Inpatient (IN) | payer MEDICARE, OTHER ==
[~2024-11-14] VITALS: Ht 188 cm; Wt 98.0 kg
[2024-11-14 13:54] LABS: Hematocrit 34.4 % (37.0-53.0); Hemoglobin 10.7 g/dL (13.5-17.5); Mean Corpuscular HGB Conc 31.1 g/dL (31.5-36.5); NRBC ABSOLUTE 0.02 K/mm3 (0.00-0.02); NRBC Auto 0.0 /100 WBC (0.0-0.2)
[2024-11-14 14:03] LABS: Mean Corpuscular Volume 103 fL (80-100); Platelet Count 155 K/mm3 (150-400); RDW Coefficient Variation 17.2 % (11.7-14.2); RDW Standard Deviation 63.6 fL (35.1-46.3)
[2024-11-14 14:10] LABS: Anion Gap 8.0 mmol/L (3-11); Blood Urea Nitrogen 22.0 mg/dL (8-24); CO2, Blood 30.0 mmol/L (21-32); Calcium, Blood 8.5 mg/dL (8.5-10.1); Chloride, Blood 99.0 mmol/L (98-108); Creatinine, Blood 1.2 mg/dL (0.60-1.20); Glucose, Blood 130.0 mg/dL (70-99); Potassium, Blood 4.2 mmol/L (3.5-5.5); Sodium, Blood 133.0 mmol/L (136-145)
[2024-11-14 14:22] LABS: Alanine Aminotransfer (ALT/SGP 23.0 U/L (12-78); Albumin, Blood 3.9 g/dL (3.4-5.0); Albumin/Globulin Ratio 1.3 (0.8-1.8); Aspartate Aminotrans (AST/SGOT 38.0 U/L (12-37); Bilirubin, Direct 0.2 mg/dL (0.0-0.3); Bilirubin, Indirect 0.5 mg/dL (0.1-0.7); Bilirubin, Total 0.7 mg/dL (0.1-1.0); Globulin, Blood 3.1 g/dL (2.2-4.0); Magnesium, Blood 2.3 mg/dL (1.6-2.4); Phosphorus, Blood 3.3 mg/dL (2.5-4.9); Total Protein, Blood 7.0 g/dL (6.4-8.2)
[2024-11-14 14:35] LABS: Influenza A, PCR NEGATIVE (NEGATIVE); Influenza B, PCR NEGATIVE (NEGATIVE); Resp Syncytial Virus, PCR NEGATIVE (NEGATIVE); SARS-Cov-2 (COVID-19) PCR, MMC NEGATIVE (NEGATIVE)
[2024-11-14 14:39] LABS: BASOPHILS ABSOLUTE MAN 0.00 K/mm3 (0.00-0.23); BASOPHILS PERCENT MAN 0 % (0-2); EOSINOPHILS ABSOLUTE MAN 0.00 K/mm3 (0.00-0.68); EOSINOPHILS PERCENT MAN 0 % (0-6); LYMPHOCYTES ABSOLUTE MAN 140.81 K/mm3 (0.84-5.20); LYMPHOCYTES PERCENT MAN 86 % (21-46); MONOCYTES ABSOLUTE MAN 16.37 K/mm3 (0.16-1.47); MONOCYTES PERCENT MAN 10 % (4-13); NEUTROPHILS ABSOLUTE MAN 6.54 K/mm3 (1.96-9.15); SEG NEUTROPHILS PERCENT MAN 4 % (41-73)
[2024-11-14] MEDS ORDERED: Ampicillin Sod/Sulbactam Sod 3 GM in NS 100 ML IV ONE (16:10)
[2024-11-14] MEDS ORDERED: CefTRIAXone Sodium 1,000 MG in NS 100 ML IV ONE (16:10)
[2024-11-14] MEDS ORDERED: NS 1,000 ML IV SCH (17:40)
[2024-11-14] MEDS ORDERED: Ondansetron HCl 2 MG / ML 2ML Vial IV PRN (17:40)
[2024-11-14] MEDS ORDERED: NS 1,000 ML IV ONE (17:55)
[2024-11-14] MEDS ORDERED: Lactobacil 2-S.Thermo-Bifido 1 1 Cap PO SCH (21:00)
[2024-11-14 22:17] VITALS: BP 128/68
--- NOTE | 2024-11-14 23:05 | NUR ---
ADMIT NOTE 84 YR OLD MALE ADMITTED TO FLOOR FROM THE ED WITH DX OF PNEUMONIA. ALERT AND ORIENTED X 4. HX OF CANCER WITH TREATMENT 2 YRS AGO. ED REPORTED PT TO BE ASSESSED FOR FURTHER TREATMENT. ON NEUTROPENIC PRECAUTINS. UP AD TERESITA WITH OBS HE STATED HE WAS WEAK. AGREED TO AMOS CALL LIGHT PRIOR TO GETTING OOB. ORIENTED TO USE OC CALL LIGHT AND BED CONTROL. VSS. RAILS UP X 2 AND BED IN LOW POSITION FOR SAFETY. WILL MONITOR. STARTED ON IV ABX - SE MAY.
[2024-11-15] MEDS ORDERED: Ampicillin Sod/Sulbactam Sod 3 GM in NS 100 ML IV SCH
[2024-11-15 02:18] VITALS: BP 136/61
--- NOTE | 2024-11-15 03:04 | NUR ---
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 ALERT AND ORIENTED. LUNG SOUNDS DIMINISHED. STARTED ON ANTIBIOTIC THERAPY. CAME IN TO THE HOSPITAL WITH FEVER (SEE ER NOTATIONS). AFEBRILE AT THIS TIME. HAS BEEN RESTING QUIETLY WITH FEW INTERRUPTIONS. CALL LIGHT IN REACH, RAILS UP X 2 AND BED IN LOW POSITION FOR SAFETY. ON NEUTROPENIC PRECAUTIONS DUE TO HX CANCER. WILL CONTINUE TO MONITOR
[2024-11-15 05:30] LABS: EOSINOPHILS ABSOLUTE AUTO 0.08 K/mm3 (0.00-0.68); EOSINOPHILS PERCENT AUTO 0 % (0-6); Hematocrit 29.4 % (37.0-53.0); Hemoglobin 9.0 g/dL (13.5-17.5); Mean Corpuscular HGB Conc 30.6 g/dL (31.5-36.5); Mean Corpuscular Volume 104 fL (80-100); NRBC ABSOLUTE 0.02 K/mm3 (0.00-0.02); NRBC Auto 0.0 /100 WBC (0.0-0.2); Platelet Count 122 K/mm3 (150-400); RDW Coefficient Variation 17.2 % (11.7-14.2); RDW Standard Deviation 65.1 fL (35.1-46.3)
[2024-11-15 05:33] LABS: BASOPHILS ABSOLUTE AUTO 0.10 K/mm3 (0.00-0.23); BASOPHILS PERCENT AUTO 0 % (0-2); IMMATURE GRAN ABSOLUTE AUTO 0.15 K/mm3 (0.00-0.10); IMMATURE GRAN PERCENT AUTO 0 % (0-1); LYMPHOCYTES ABSOLUTE AUTO 119.01 K/mm3 (0.84-5.20); LYMPHOCYTES PERCENT AUTO 85 % (21-46); MONOCYTES ABSOLUTE AUTO 18.73 K/mm3 (0.16-1.47); MONOCYTES PERCENT AUTO 13 % (4-13); NEUTROPHILS ABSOLUTE AUTO 2.17 K/mm3 (1.96-9.15); NEUTROPHILS PERCENT AUTO 1 % (41-73)
[2024-11-15 05:55] LABS: Alanine Aminotransfer (ALT/SGP 21.0 U/L (12-78); Albumin, Blood 3.1 g/dL (3.4-5.0); Albumin/Globulin Ratio 1.2 (0.8-1.8); Anion Gap 8.0 mmol/L (3-11); Aspartate Aminotrans (AST/SGOT 34.0 U/L (12-37); Bilirubin, Total 0.4 mg/dL (0.1-1.0); Blood Urea Nitrogen 23.0 mg/dL (8-24); CO2, Blood 29.0 mmol/L (21-32); Calcium, Blood 8.1 mg/dL (8.5-10.1); Chloride, Blood 104.0 mmol/L (98-108); Creatinine, Blood 1.02 mg/dL (0.60-1.20); Globulin, Blood 2.6 g/dL (2.2-4.0); Glucose, Blood 112.0 mg/dL (70-99); Potassium, Blood 3.6 mmol/L (3.5-5.5); Sodium, Blood 137.0 mmol/L (136-145); Total Protein, Blood 5.7 g/dL (6.4-8.2)
--- NOTE | 2024-11-15 07:41 | NUR ---
ASSUMPTION OF CARE: THIS RN ASSUMED CARE OF PATIENT WITH ORIENTING [place]. AWAKE DURING SHIFT CHANGE REPORT. SITTING UP IN BED c HOB ELEVATED. BREATHING EVEN AND UNLABORED c ROOM AIR. C/O COUGH; WILL CONFER c PROVIDER FOR ANTITUSSIVE. NS @ 100mL/hr VIA RAC. BED IN LOWEST POSITION. CALL LIGHT WITHIN REACH. ACUTE NEEDS MET.
[2024-11-15 08:14] VITALS: BP 140/67
[2024-11-15] MEDS ORDERED: Enoxaparin 40 MG/0.4 ML SYR SC SCH (09:00)
[2024-11-15] MEDS ORDERED: XYZAL5 MG PO (09:03)
[2024-11-15] MEDS ORDERED: ACET500 PO (09:03)
[2024-11-15] MEDS ORDERED: Polyethylene Glycol 3350 17 gm PO PRN (10:30)
[2024-11-15 16:02] VITALS: BP 131/67
--- NOTE | 2024-11-15 18:46 | NUR ---
END OF SHIFT SUMMARY: A&Ox4. PLEASANT AND COOPERATIVE WITH CARE. CALLS APPROPRIATELY AND IS ABLE TO ADVOCATE NEEDS EFFECTIVELY. VSS. BREATHING EVEN AND UNLABORED c RA. INTERMITTENT COUGH, RESOLVING DAY PROGRESSES. CONTINENT OF BOWEL AND BLADDER; LBM TODAY. TOLERATING SOFT DIET. AMBULATES INDEPENDENTLY. MEDS WHOLE c FLUIDS. THROAT PAIN RESOLVED. PLAN TO CONTINUE WITH IV ABx AND FLUIDS; ANTICIPATE DC TOMORROW. BED IN LOWEST POSITION, CALL LIGHT WITHIN REACH, ALL NEEDS MET. REPORT TO ONCOMING NURSE.
[2024-11-15 19:13] VITALS: BP 126/60
[2024-11-15] MEDS ORDERED: Docusate Sodium/Senna 1 Tab PO SCH (21:00)
[2024-11-16 03:28] VITALS: BP 137/67
--- NOTE | 2024-11-16 04:17 | NUR ---
WOOD PREPARATION SUPERVISOR SUMMARY VSS. ALERT AND ORIENTED. COOPERATIVE WITH CARE. IV ANTIBIOTICS INFUSING ORDERED. DX OF PNEUMONIA, LUNG SOUNDS DIMINISHED. NO NOTED COUGH THIS SHIFT. UP AD TERESITA. HAS BEEN RESTING QUIETLY WITH FEW INTERRUPTIONS. RESPS EVEN. HOB ELEVATED FOR COMFORT. CALL LIGHT IN REACH, RAILS UP X 2 AND BED IN LOW POSITION FOR SAFETY. WILL CONTINUE TO MONITOR.
[2024-11-16 05:37] LABS: Hematocrit 29.1 % (37.0-53.0); Hemoglobin 8.7 g/dL (13.5-17.5); Mean Corpuscular HGB Conc 29.9 g/dL (31.5-36.5); Mean Corpuscular Volume 104 fL (80-100); NRBC ABSOLUTE 0.00 K/mm3 (0.00-0.02); NRBC Auto 0.0 /100 WBC (0.0-0.2); Platelet Count 142 K/mm3 (150-400); RDW Coefficient Variation 17.0 % (11.7-14.2); RDW Standard Deviation 64.7 fL (35.1-46.3)
[2024-11-16 07:50] VITALS: BP 143/72
[2024-11-16] MEDS ORDERED: GUAI600T33 PO (11:16)
[2024-11-16] MEDS ORDERED: AMOCLA875 PO (11:17)
--- NOTE | 2024-11-16 12:54 | NUR ---
DISCHARGE NOTE: WENT OVER DISCHARGE WITH THE PATIENT AND HIS . PATIENT GOT HIMSELF DRESSED, IV REMOVED. PATIENT WHEELED DOWN TO [facility] BY THIS RN. NO SIGNS OR SYMPTOMS OF DISTRESS WITH DISCHARGE.
== END 2024-11-16 11:49 | disposition home or self-care (01) | DRG 871 ==
LOC: ER 12:32 → MEDS 17:37 → ENPENDDIS 11-16 09:56 → MEDS 11-16 11:49
PROVIDERS: Internal Medicine; Nurse Practitioner Acute Care; Student in an Organized Health Care Education/Training Program; ADMIT Internal Medicine
DX: A41.9 Sepsis, unspecified organism (principal); J18.9 Pneumonia, unspecified organism; C91.10 Chronic lymphocytic leukemia of B-cell type not having achieved remission; J36 Peritonsillar abscess; E87.1 Hypo-osmolality and hyponatremia; D64.9 Anemia, unspecified; E78.00 Pure hypercholesterolemia, unspecified; I10 Essential (primary) hypertension; E78.5 Hyperlipidemia, unspecified; Z91.048 Other nonmedicinal substance allergy status; Z79.899 Other long term (current) drug therapy; Z90.49 Acquired absence of other specified parts of digestive tract; Z98.890 Other specified postprocedural states
CPT/HCPCS: 36415; 70491; 71046; 71260; 80048; 80053; 80076; 83605; 83735; 84100; 84145; 84484; 85025; 85027; 85379; 87081; 87430; 87449; 87637; 93005; 93010; 96365-59; 96367; 99285-25; A9270; J0295; J0456; J0696; J1650; J7030; J7050; Q9967

== ENCOUNTER 2025-02-06 05:39 | Emergency (ER) | payer MEDICARE, OTHER ==
[~2025-02-06] VITALS: Ht 188 cm; Wt 97.1 kg
[~2025-02-06 05:39] MED LIST changes: +ACET500 PO; +GUAI600T33 PO
[2025-02-06] MEDS ORDERED: Percocet 5-3251 EACH PO (07:48)
[2025-02-06 08:00] VITALS: BP 155/72
== END 2025-02-06 08:00 | disposition home or self-care (01) ==
LOC: ER 05:39
DX: H57.11 Ocular pain, right eye (principal); E78.5 Hyperlipidemia, unspecified; Z98.890 Other specified postprocedural states; Z91.09 Other allergy status, other than to drugs and biological substances; Z79.899 Other long term (current) drug therapy
CPT/HCPCS: 70487; 99283-25; Q9967

== ENCOUNTER 2025-02-18 06:43 | Emergency (ER) | payer MEDICARE, OTHER ==
[~2025-02-18] VITALS: Ht 188 cm; Wt 94.3 kg
[~2025-02-18 06:43] MED LIST changes: +Percocet 5-3251 EACH PO
[2025-02-18 07:49] LABS: Source, Urine Clean Catch
[2025-02-18 08:03] LABS: Bilirubin, Urine Neg (Neg); Color, Urine Yellow (P-Yellow); Glucose Qualitative, Urine Neg (Neg); Ketones, Urine Neg (Neg); Leukocyte Esterase, Urine 3+ (Neg); Protein, Urine 3+ (Neg); Specific Gravity, Urine 1.015 (1.003-1.022); Urobilinogen, Urine NORM (Normal)
[2025-02-18 08:14] LABS: White Blood Cells, Urine 50-100 /hpf (0-5)
[2025-02-18 08:45] VITALS: BP 145/60
[2025-02-18] MEDS ORDERED: CIPR500 PO (08:54)
== END 2025-02-18 09:07 | disposition home or self-care (01) ==
LOC: ER 06:43
PROVIDERS: Emergency Medicine
DX: N39.0 Urinary tract infection, site not specified (principal)
CPT/HCPCS: 81001; 87077; 87086; 87186; 99283; A9270

== ENCOUNTER → 2025-02-21 | Outpatient (CLI) | payer MEDICARE, OTHER ==
[~2025-02-21] MED LIST changes: +CIPR500 PO
[2025-02-21 19:51] LABS: Alanine Aminotransfer (ALT/SGP 27.0 U/L (12-78); Albumin, Blood 3.3 g/dL (3.4-5.0); Albumin/Globulin Ratio 1.4 (0.8-1.8); Anion Gap 10.0 mmol/L (3-11); Aspartate Aminotrans (AST/SGOT 33.0 U/L (12-37); Bilirubin, Total 0.4 mg/dL (0.1-1.0); Blood Urea Nitrogen 24.0 mg/dL (8-24); CO2, Blood 26.0 mmol/L (21-32); Calcium, Blood 8.5 mg/dL (8.5-10.1); Chloride, Blood 106.0 mmol/L (98-108); Creatinine, Blood 0.86 mg/dL (0.60-1.20); Globulin, Blood 2.3 g/dL (2.2-4.0); Glucose, Blood 105.0 mg/dL (70-99); Phosphorus, Blood 4.2 mg/dL (2.5-4.9); Potassium, Blood 4.0 mmol/L (3.5-5.5); Sodium, Blood 138.0 mmol/L (136-145); Total Protein, Blood 5.6 g/dL (6.4-8.2)
== END ==
LOC: LAB 11:30 → LAB SHORT 11:30
PROVIDERS: Internal Medicine Hematology & Oncology
DX: C91.10 Chronic lymphocytic leukemia of B-cell type not having achieved remission (principal)
CPT/HCPCS: 80053; 84100